=== PATIENT | male | born 1970 | race Caucasian/White ===

== ENCOUNTER 2023-12-01 06:46 | Outpatient (OUT) | payer BC, SELFPAY ==
[2023-12-01 07:10] LABS: Basophils Percent Auto 0.8 % (0.2-2.0); Eosinophils Absolute Auto 0.1 10^3/uL (0.0-0.7); Hematocrit 46.8 % (42.0-54.0); Hemoglobin 15.2 g/dL (14.0-18.0); Immature Granulocytes Abs Auto 0.01 10^3/uL (0.00-0.03); Immature Granulocytes Pct Auto 0.2 % (0.0-0.5); Lymphocytes Absolute Auto 1.4 10^3/uL (1.2-3.8); Lymphocytes Percent Auto 29.4 % (20.5-60.0); Mean Corpuscular HGB Conc 32.5 g/dL (29.9-35.2); Mean Corpuscular Hemoglobin 28.3 pg (25.9-34.0); Mean Platelet Volume 9.4 fL (9.5-13.5); Monocytes Absolute Auto 0.5 10^3/uL (0.3-0.8); Monocytes Percent Auto 10.8 % (1.7-12.0); Neutrophils Absolute Auto 2.6 10^3/uL (1.4-6.5); Neutrophils Percent Auto 55.8 % (43.0-75.0); Platelet Count 274 10^3/uL (150-450); Red Blood Count 5.38 10^6/uL (4.70-6.10); Red Cell Distribution Width 12.8 % (11.0-15.0); White Blood Count 4.7 10^3/uL (4.0-11.0)
[2023-12-01 09:12] LABS: Alanine Aminotransferase 52 U/L (16-63); Albumin Globulin Ratio 1.3; Alkaline Phosphatase 87 U/L (46-116); Anion Gap 12.1; Aspartate Amino Transferase 27 U/L (15-37); BUN Creatinine Ratio 10.6; Bilirubin Total 0.8 mg/dL (0.2-1.0); Calcium 9.9 mg/dL (8.5-10.1); Carbon Dioxide 29.3 mmol/L (21.0-32.0); Chloride 105 mmol/L (98-107); Chol HDL Ratio 3.1; Cholesterol 211 mg/dL (<=200); Estimated GFR (African America >60 (>=60); Estimated GFR (Non-African Ame >60 (>=60); Globulin 3.2 g/dL; Glucose 99 mg/dL (74-106); HDL Cholesterol 68 mg/dL (40-60); Potassium 4.4 mmol/L (3.5-5.1); Sodium 142 mmol/L (136-145); Thyroid Stimulating Hormone 1.813 uIU/mL (0.358-3.740); Total Protein 7.2 g/dL (6.4-8.2); Triglycerides 60 mg/dL (<=150)
[2023-12-01 09:15] LABS: Prostate Specific Antigen Scrn 0.44 ng/mL (<=4.00)
[2023-12-02 04:08] LABS: Testosterone 756 ng/dL (264-916)
== END 2023-12-01 06:47 | disposition home or self-care (01) ==
PROVIDERS: PCP Internal Medicine; Visit Provider Internal Medicine
DX: Z00.00 Encounter for general adult medical examination without abnormal findings (principal)
CPT/HCPCS: 36415; 80053; 80061; 84403; 84443; 85025; G0103

== ENCOUNTER 2025-03-28 08:50 | Outpatient (OUT) | payer BC, SELFPAY ==
--- OUTSIDE RECORDS SUMMARY | 2025-03-28 08:55 | XMS_ITS | CCD ---
Author Organization [facility] Care Team Providers Care Diamond Polisher Name Role Phone ELISA, DR SONG Attending Unavailable ELISA, DR SONG Consulting Unavailable ELISA, DR SONG Primary Care Unavailable ELISA, DR SONG Admitting Unavailable ELISA, DR SONG Consulting Unavailable ELISA, DR SONG Admitting Unavailable ELISA, DR SONG Attending Unavailable ELISA, DR SONG Consulting Unavailable ELISA, DR SONG Primary Care Unavailable ELISA, DR SONG Admitting Unavailable ELISA, DR SONG Attending Unavailable ELISA, SHAHEED Primary Care Physician Raheel CASTAÑEDA Attending Unavailable Rajesh, Gregor Attending Unavailable KEN GIRALDO Attending Unavailable MARLON, Taz Attending Unavailable Rufus, Eligio Malik Attending Unavailable Medications Current Medications Medication Drug Class(es) Dates Sig (Normalized) Sig (Original) acetaminophen 325 mg / oxyCODONE hydrochloride 5 mg oral tablet (2 sources) Opioid Agonist Start: 04-04-2024 End: 04-07-2024 Percocet 5 mg-325 mg oral tablet 1 tab(s), Oral, q6hr as needed for pain for 3 day(s), 15 tab(s), Refill(s) 0, [facility] #[id number], 174, cm, 04/04/24 14:40:00 EDT, Height/Length Dosing, 96.3, kg, 04/04/24 14:40:00 EDT, Weight Dosing Start Date: 04/04/24 Stop Date: 04/07/24 Status: Ordered Start: 01-01-2022 End: 01-04-2022 Percocet 325 mg-5 mg Tab 1 t ab(s), Oral, q6hr as needed for pain for 3 day(s), 15 tab(s), Refill(s) 0, [facility] #[id number], 177.8, cm, 01/01/22 18:15:00 EDT, Height/Length Dosing, 95.3, kg, 01/01/22 18:15:00 EDT, Weight Dosing Start Date: 01/01/22 Stop Date: 01/04/22 Status: Ordered benzonatate 100 mg oral capsule (1 source) Non-narcotic Antitussive Start: 07-24-2023 End: 07-31-2023 take 1 capsule by mouth three times daily Tessalon 100 mg Cap 100 mg = 1 cap(s), Oral, TID, X 7 day(s), # 21 cap(s), Refills(s) 0, Pharmacy: [facility]/pharmacy #[id number], 174, cm, 07/24/23 9:32:00 EST, Height/Length Dosing, 95.7, kg, 07/24/23 9:32:00 EST, Weight Dosing Start Date: 07/24/23 Stop Date: 07/31/23 Status: Ordered lidocaine 0.05 mg/mg medicated patch (4 sources) Antiarrhythmic, Amide Local Anesthetic Start: 05-06-2018 Lidoderm 5% Patch 1 patch(es), Topical, Daily, 7 patch(es), Refill(s) 0, apply 12 hours on and 12 hours off daily Start Date: 05/06/18 Status: Ordered methocarbamol 500 mg oral tablet (4 sources) Muscle Relaxant Start: 05-11-2018 take 1 tablet by mouth twice daily as needed for pain Robaxin 500 mg Tab 500 mg = 1 tab(s), Oral, BID, PRN as needed for pain, # 30 tab(s), Refills(s) 0 Start Date: 05/11/18 Status: Ordered naproxen 500 mg oral tablet (9 sources) Nonsteroidal Anti-inflammatory Drug Start: 05-11-2018 take 1 tablet by mouth twice daily as needed for pain Naprosyn 500 mg Tab 500 mg = 1 tab(s), Oral, BID, PRN for pain, # 20 tab(s), Refills(s) 0, Pharmacy: [facility]/pharmacy #[id number], 177.8, cm, 01/01/22 18:15:00 EDT, Height/Length Dosing, 95.3, kg, 01/01/22 18:15:00 EDT, Weight Dosing Start Date: 01/01/22 Status: Ordered tamsulosin hydrochloride 0.4 mg oral capsule (6 sources) alpha-Adrenergic Johnathon Start: 01-01-2022 End: 01-01-2022 take 1 capsule by mouth once daily Flomax 0.4 mg Cap 0.4 mg = 1 cap(s), Oral, Daily, # 10 cap(s), Refills(s) 0, Pharmacy: [facility] #[id number], 174, cm, 04/04/24 14:40:00 EDT, Height/Length Dosing, 96.3, kg, 04/04/24 14:40:00 EDT, Weight Dosing Start Date: 04/04/24 Status: Ordered Zofran ODT 4 mg Tab-Dis (5 sources) Start: 04-04-2024 take 1 tablet by mouth three times daily Zofran ODT 4 mg Tab-Dis 4 mg = 1 tab(s), Oral, TID, # 15 tab(s), Refills(s) 0, Pharmacy: [facility] #[id number], 174, cm, 04/04/24 14:40:00 EDT, Height/Length Dosing, 96.3, kg, 04/04/24 14:40:00 EDT, Weight Dosing Start Date: 04/04/24 Status: Ordered Start: 01-01-2022 take 1 tablet by tesfaye th three times daily Zofran ODT 4 mg Tab-Dis 4 mg = 1 tab(s), Oral, TID, # 15 tab(s), Refills(s) 0, [id number] 177.8, cm, 01/01/22 18:15:00 EDT, Height/Length Dosing, 95.3, kg, 01/01/22 18:15:00 EDT, Weight Dosing Start Date: 01/01/22 Status: Ordered Problems Active Problems Problem Classification Problem Date Documented Da te Episodic/Chronic Calculus of urinary tract (2 sources) Ureteric stone; Translations: [Calculus of ureter] Onset: 01-01-2022 Episodic Other nutritional; endocrine; and metabolic disorders (2 sources) Obese class I; Translations: [Body mass index (BMI) 30.0-30.9, adult] Onset: 10-06-2022 Chronic Other nutritional; endocrine; and metabolic disorders (1 source) Obesity; Translations: [Obesity, unspecified] 11-29-2023 Chronic Other nutritional; endocrine; and metabolic disorders (1 source) Obesity, unspecified; Translations: [Obesity, unspecified] 11-29-2023 Chronic Other screening for suspected conditions (not mental disorders or infectious disease) (4 sources) Patient encounter status; Translations: [Encounter for screening for malignant neoplasm of prostate] 11-27-2023 Episodic Other upper respiratory infections (1 source) Acute upper respiratory infection; Translations: [Acute upper respiratory infection, unspecified] Onset: 07-24-2023 Episodic Unclassified (3 sources) Patient encounter status 10-06-2022 Past or Other Problems Problem Classification Problem Date Documented Da te Episodic/Chronic Immunizations and screening for infectious disease (4 sources) Contact with and (suspected) exposure to other viral communicable diseases; Translations: [CONTCT EXPS OTH VIRL COMMUNICABL DZ] Onset: 03-10-2021 Episodic Results Test Name Value Interpretation Reference Range Facility [facility] 04-04-2024 Anion gap [Moles/Vol] 15 mmol/L Normal 6-16 [facility] Comment on above: Performed By: #### 2 [id number] #### [facility] [address] [place] [address] Calcium [Mass/Vol] 10.2 mg/dL Normal 8.9-11.1 [facility] Comment on above: Performed By: #### 2 [id number] #### [facility] [address] [place] [address] Chloride [Moles/Vol] 102 mmol/L Normal 101-111 [facility] Comment on above: Performed By: #### 2 [id number] #### [facility] [address] [place] [address] CO2 [Moles/Vol] 25 mmol/L Normal 21-31 [facility] Comment on above: Performed By: #### 2 [id number] #### [facility] [address] [place] [address] Creatinine [Mass/Vol] 1.6 mg/dL High 0.5-1.3 [facility] Comment on above: Performed By: #### 2 [id number] #### [facility] [address] [place] [address] Glucose [Mass/Vol] 117 mg/dL Normal 55-199 [facility] Comment on above: Performed By: #### 2 [id number] #### [facility] [address] [place] [address] Potassium [Moles/Vol] 4.6 mmol/L Normal 3.5-5.3 [facility] Comment on above: Performed By: #### 2 [id number] #### [facility] [address] [place] [address] Sodium [Moles/Vol] 137 mmol/L Normal 135-145 [facility] Comment on above: Performed By: #### 2 [id number] #### [facility] [address] [place] [address] Urea nitrogen [Mass/Vol] 16 mg/dL Normal 5-21 [facility] Comment on above: Performed By: #### 2 [id number] #### [facility] [address] [place] [address] Urea nitrogen/Creatinine [Mass ratio] 10 No Units Normal 10-20 [facility] Comment on above: Performed By: #### 2 [id number] #### [facility] [address] [place] [address] CBC w/ Auto Diffon 4 Basophils/100 WBC (Bld) 0.3 % Normal 0.0-2.0 [facility] Comment on above: Performed By: #### 2 [id number] #### [facility] [address] [place] [address] Basophils/Leukocytes Auto (Bld) [Pure # fraction] 0.0 E9/L Normal 0.0-0.2 [facility] Comment on above: Performed By: #### 2 [id number] #### [facility] [address] [place] [address] Eosinophils (Bld) [#/Vol] 0.0 E9/L Normal 0.0-0.5 [facility] Comment on above: Performed By: #### 2 [id number] #### [facility] [address] [place] [address] Eosinophils/100 WBC (Bld) 0.0 % Normal 0.0-8.0 [facility] Comment on above: Performed By: #### 2 [id number] #### [facility] [address] [place] [address] Erythrocyte distribution width (RBC) [Ratio] 13.5 % Normal 10.9-14.2 [facility] Comment on above: Performed By: #### 2 [id number] #### [facility] [address] [place] [address] Hematocrit (Bld) [Volume fraction] 47.5 % Normal 37.7-49.0 [facility] Comment on above: Performed By: #### 2 [id number] #### [facility] [address] [place] [address] Hemoglobin (Bld) [Mass/Vol] 16.4 g/dL Normal 13.5-17.5 [facility] Comment on above: Performed By: #### 2 [id number] #### [facility] [address] [place] [address] Lymphocytes (Bld) [#/Vol] 0.5 E9/L Low 1.0-4.0 [facility] Comment on above: Performed By: #### 2 [id number] #### [facility] [address] [place] [address] Lymphocytes/100 WBC (Bld) 3.9 % Low 14.0-50.0 [facility] Comment on above: Performed By: #### 2 [id number] #### [facility] [address] [place] [address] MCH (RBC) [Entitic mass] 29.7 pg Normal 27.0-34.0 [facility] Comment on above: Performed By: #### 2 [id number] #### [facility] [address] [place] [address] MCHC (RBC) [Mass/Vol] 34.6 g/dL Normal 31.4-36.0 [facility] Comment on above: Performed By: #### 2 [id number] #### [facility] [address] [place] [address] MCV (RBC) [Entitic vol] 85.7 fL Normal 80.0-100.0 [facility] Comment on above: Performed By: #### 2 [id number] #### [facility] [address] [place] [address] Monocytes (Bld) [#/Vol] 0.6 E9/L Normal 0.2-1.0 [facility] Comment on above: Performed By: #### 2 [id number] #### [facility] [address] [place] [address] Neutrophils (Bld) [#/Vol] 11.1 E9/L High 2.0-7.5 [facility] Comment on above: Performed By: #### 2 [id number] #### [facility] [address] [place] [address] Neutrophils/100 WBC (Bld) 90.5 % High 36.0-75.0 [facility] Comment on above: Performed By: #### 2 006025 #### [facility] [address] [place] [address] Platelet 325.0 E9/L Normal 150.0-500.0 [facility] Comment on above: Performed By: #### 2 [id number] #### [facility] [address] [place] [address] Platelet mean volume (Bld) [Entitic vol] 8.1 fL Normal 6.4-10.8 [facility] Comment on above: Performed By: #### 2 [id number] #### [facility] [address] [place] [address] RBC (Bld) [#/Vol] 5.5 E12/L Normal 4.3-5.9 [facility] Comment on above: Performed By: #### 2 [id number] #### [facility] [address] [place] [address] WBC corrected for nucl RBC Auto (Bld) [#/Vol] 12.3 E9/L High 4.0-11.0 [facility] Comment on above: Performed By: #### 2 [id number] #### [facility] [address] [place] [address] CHEMISTRYOrdered By: SYSTEM SYSTEM on 04-04-2024 Albumin [Mass/Vol] 5.2 g/dL High 3.3 - 5.0 gm/dL [facility] Albumin/Globulin [Mass ratio] 2.1 {ratio} Normal 1.1 - 2.2 [facility] ALP [Catalytic activity/Vol] 75 [iU]/d Normal 21 - 98 Int._Unit/L [facility] ALT No additional P-5'-P [Catalytic activity/Vol] 43 [iU]/d Normal 6 - 46 Int._Unit/L [facility] Anion gap [Moles/Vol] 15 mmol/L Normal 6 - 16 mEq/L R [facility] Chem AST [Catalytic activity/Vol] 32 [iU]/d Normal 5 - 43 Int._Unit/L [facility] Bilirubin [Mass/Vol] 1.0 mg/dL Normal 0.0 - 1 .1 mg/dL [facility] Bilirubin.direct [Mass/Vol] 0.1 mg/dL Normal 0.0 - 0.4 mg/dL [facility] Bilirubin.indirect [Mass or moles/Vol] 0.9 mg/dL Normal 0.1 - 0.9 mg/dL [facility] Calcium [Mass/Vol] 10.2 mg/dL Normal 8.9 - 11. 1 mg/dL [facility] Chloride [Moles/Vol] 102 mmol/L Normal 101 - 1 11 mmol/L [facility] CO2 [Moles/Vol] 25 mmol/L Normal 21 - 31 mmol/L [facility] Creatinine [Mass/Vol] 1.6 mg/dL High 0.5 - 1.3 mg/dL [facility] eGFR 51 mL/min/1.73 m2 Low >=59mL/min /1 .73 m2 [facility] Globulin (S) [Mass/Vol] 2.5 g/dL Normal 1.4 - 4.0 gm/dL [facility] Glucose [Mass/Vol] 117 mg/dL Normal 55 - 199 mg/dL [facility] Lipase [Catalytic activity/Vol] 20 U/L Normal 13 - 58 unit/L [facility] Potassium [Moles/Vol] 4.6 mmol/L Normal 3.5 - 5.3 mmol/L [facility] Protein [Mass/Vol] 7.7 g/dL Normal 6.0 - 7.8 gm/dL [facility] Sodium [Moles/Vol] 137 mmol/L Normal 135 - 145 mmol/L [facility] Urea nitrogen [Mass/Vol] 16 mg/dL Normal 5 - 21 mg/dL [facility] Urea nitrogen/Creatinine [Mass ratio] 10 mg/mg Normal 10 - [address] Abdomen/Pelvis w/o Contra ston 04-04-2024 CT Abdomen/Pelvis w/o Contrast Exam Date/Time: 04/04/2024 16:51 EDT Reason for Exam: Pain Report IMPRESSION: Mild to moderately obstructing 5 mm calculus in the right proximal/mid ureter. Additional small nonobstructing renal calculi. EXAMINATION: CT Abdomen/Pelvis w/o Contrast HISTORY: Right flank pain. Nausea and vomiting. History of kidney stones. TECHNIQUE: Non-IV contrast imaging of the abdomen and pelvis was performed using standard technique, scanning from just above the dome of the diaphragm to the symphysis pubis. Unenhanced imaging is limited for the evaluation of some intra-abdominal and pelvic pathology. Unless otherwise stated, incidental findings in this report do not require further routine follow-up imaging. All CT scans at this facility use dose modulation, iterative reconstruction, and/or weight based dosing when appropriate to reduce radiation dose to as low as reasonably achievable. COMPARISON: CT 01/01/2022. RESULT: Abdomen / Pelvis: Liver: Multiple benign cysts, similar to prior. Biliary: Gallbladder unremarkable. Pancreas: Unremarkable. Spleen: No splenomegaly. Adrenals: No mass. Kidneys and urinary tract: 5 mm calculus right proximal/mid ureter (series 2 image 45, series 3 image 31), located around 7 cm distal to the right renal pelvis. Mild to moderate upstream right hydroureteronephrosis with right perinephric stranding. Multiple additional bilateral renal calculi with the largest in the left lower pole measuring around 3 mm. No left hydronephrosis. No suspicious lesions of the unenhanced kidneys. Report GI Tract: No bowel dilation. Diverticulosis without evidence for diverticulitis. Feces throughout the colon. Lymph Nodes: No lymphadenopathy. Mesentery/peritoneum/ret roperitoneum: Right perinephric stranding. No loculated collection. No pneumoperitoneum. Vasculature: No abdominal aortic or iliac artery aneurysm. Pelvis: No significant free fluid. Bladder decompressed. Prostate calcifications. Small fat-containing left inguinal hernia. Bones/Soft Tissues: No acute osseous findings. Degenerative changes. Lower thorax: Unremarkable. Ordering Provider: Jace Lai FINAL REPORT Dictated: 04/04/2024 5:01 pm Chandan Milan MD Signed (Electronic Signature): 04/04/2024 5:01 pm Signed by: Chandan Milan MD Transcribed by: CHEY Technologist: NAE Technical Comments Rectal Contrast Given? No Oral contrast amount in ml's: 0 Normal [facility] ED Clinical Summaryon 2023 ED Clinical Summary ED Clinical Summary [place] [id number] ED Clinical Summary Person Information Name: DILEEP CERNA Kecia/[facility] Age: 53 Years : 1970 Sex: Male Language: Comoran PCP: SHAHEED CARRENO DO Marital Status: Phone: [phone] Visit Id: Visit Reason: Vomiting; Nausea; Flank pain; pos. kidney stone Speciality: Acuity: 3 Enc Type: Emergency Med Service: Emergency Arrival: 04/04/2024 14:35:00 Discharge: 04/04/2024 18:07:41 LOS: 000 03:32 Checkin: 04/04/2024 14:35:00 Checkout: 04/04/2024 18:07:41 Dispo Type: Home (Routine DC) EVENTS: Event Name Event Status Request Date/Time Start Date/Time Complete Date/Time Arrive Complete 04/04/2024 14:35:00 04/04/2024 14:35:00 04/04/2024 14:35:00 Document Home Meds Request 04/04/2024 14:35:00 Triage Complete 04/04/2024 14:35:00 04/04/2024 14:40:26 04/04/2024 14:40:26 Pending Labs Complete 04/04/2024 14:42:01 04/04/2024 16:59:48 Lab Complete 04/04/2024 14:42:01 04/04/2024 16:07:31 Pending Labs Complete 04/04/2024 15:42:52 04/04/2024 15:42:52 04/04/2024 16:07:31 Lab Complete 04/04/2024 15:42:52 04/04/2024 15:42:52 04/04/2024 16:07:31 Pending Labs Complete 04/04/2024 15:43:43 04/04/2024 15:43:43 04/04/2024 15:43:44 Bed Assign Complete 04/04/2024 16:03:48 04/04/2024 16:03:48 04/04/2024 16:03:48 Dr Exam Complete 04/04/2024 16:03:48 04/04/2024 16:21:33 04/04/2024 16:21:33 RN Exam Complete 04/04/2024 16:03:48 04/04/2024 16:45:33 04/04/2024 16:45:33 Pending Labs Complete 04/04/2024 16:15:08 04/04/2024 16:15:08 04/04/2024 16:15:08 Registration Complete 04/04/2024 16:21:33 04/04/2024 17:02:41 04/04/2024 17:02:41 Meds Admin Complete 04/04/2024 16:28:51 04/04/2024 16:37:35 CT Complete 04/04/2024 16:28:51 04/04/2024 16:37:55 04/04/2024 16:51:07 Dr Exam Complete 04/04/2024 16:33:16 04/04/2024 16:33:16 04/04/2024 16:33:16 Reg Complete Request 04/04/2024 17:02:41 Reg Bed Request Complete 04/04/2024 17:02:41 04/04/2024 17:02:41 04/04/2024 17:02:41 Patient Care Complete 04/04/2024 17:38:12 04/04/2024 18:07:17 Discharge Complete 04/04/2024 17:38:34 04/04/2024 18:07:46 04/04/2024 18:07:46 Transfer Complete 04/04/2024 18:07:46 04/04/2024 18:07:46 04/04/2024 18:07:46 ADDRESS: [address] [place] [phone] PHYS DOC NOTES: MEDICAL INFORMATION: Prescriptions Given: [id number], [address] [place], [place] [id number], [phone] acetaminophen-oxycodone (Percocet 5 mg-325 mg oral tablet) 1 Tablets By Mouth every 6 hours as needed as needed for pain for 3 Days. Refills: 0. Medications to Continue Taking That Have Changed [facility] [employer] [id number] [address] [place], [place] [id number], [phone] START: naproxen (Naprosyn 500 mg Tab) 1 Tablets By Mouth 2 times a day as needed for pain. Refills: 0. START: ondansetron (Zofran ODT 4 mg Tab-Dis) 1 Tablets By Mouth 3 times a day. Refills: 0. START: tamsulosin (Flomax 0.4 mg Cap) 1 Capsules By Mouth every day. Refills: 0. Other Medications START: naproxen (Naprosyn 500 mg Tab) 1 Tablets By Mouth 2 times a day as needed for pain. Refills: 0. START: naproxen (Naprosyn 500 mg Tab) 1 Tablets By Mouth 2 times a day as needed as needed for pain. Refills: 0. START: ondansetron (Zofran ODT 4 mg Tab-Dis) 1 Tablets By Mouth 3 times a day. Refills: 0. START: tamsulosin (Flomax 0.4 mg Cap) 1 Capsules By Mouth every day. Refills: 0. Medications to Continue with No Changes Other Medications lidocaine topical (Lidoderm 5% Patch) 1 Patches Topical every day. apply 12 hours on and 12 hours off daily. Refills: 0. methocarbamol (Robaxin 500 mg Tab) 1 Tablets By Mouth 2 times a day as needed as needed for pain. Refills: 0. PATIENT EDUCATION INFORMATION: Instructions: Kidney Stones Follow up: With: Address: When: Shazia Astudillo, [place] [address], [employer] [address] [phone] Business (1) In 3 days 04/07/2024 DIAGNOSIS: Kidney stone Normal [facility] ED Note-Physicianon 04-04-20 ED Note-Physician ED Note-Physician Basic Information Time Seen: Jace Lai PA-C 04/04/2024 16:21 Chief Complaint patient presents with right flank pain that radiates around into stomach with nausea and vomiting. hx 1 kidney stone. denies fevers or urinary symptoms History of Present Illness 53-year-old male comes into the ED for evaluation of right-sided flank pain. Patient awoke overnight with pain to the right flank area. This radiates to the right side the abdomen. He has a history of kidney stones and this does feel similar. He has had associated nausea and vomiting. No fever or chills. No urinary symptoms. No previous abdominal surgeries other than a hernia repair. No prior treatments. Review of Systems A 10 point review of systems is negative except as noted above. Medical and Surgical History: Reviewed and noted Social history: Lives at home Tobacco: Denies Physical Exam Vitals & Measurements T: 36.9 ?C(Oral) HR: 68(Peripheral) RR: 15 BP: 111/72 SpO2: 98% HT: 174 cm WT: 96.3 kg BMI: 31.81 Nurses notes and vital signs reviewed and patient is not hypoxic. General: The patient appears well, resting comfortably. Skin: Warm, dry. Head: Atraumatic. Neck: No JVD. Eye: Normal conjunctiva. Ears, Nose, Mouth, and Throat: Moist mucous membranes. Cardiovascular: Strong distal pulses. Chest wall: Respiratory: Respirations are nonlabored. Back: Mild right CVA tenderness Musculoskeletal: Normal ROM with no gross deformity. Gastrointestinal: Soft and nontender Urological: Neurological: Awake and alert. No focal deficits. Follows commands. Psychiatric: Cooperative. Medical Decision Making Laboratory studies reviewed and noted. Mild creatinine elevation patient was treated here with a liter of IV fluids. CT of the abdomen shows a 5 mm stone within the right ureter. Patient feels much improved on repeat evaluation here. He will be discharged home pain medications, urine strainer given urology follow-up. Patient was encouraged to return to the ED if symptoms worsen or change. Assessment/Plan Kidney stone (N20.0: Calculus of kidney) Ordered: acetaminophen-oxycodone, 1 tab(s), Oral, q6hr as needed for pain for 3 day(s), 15 tab(s), Refill(s) 0, [facility] #[id number], 174, cm, 04/04/24 14:40:00 EDT, Height/Length Dosing, 96.3, kg, 04/04/24 14:40:00 EDT, Weight Dosing Orders: ketorolac, 30 mg = 1 mL, Injection, IV Push, Once, Stop date 04/04/24 16:28:00 EDT, STAT, Start date 04/04/24 16:28:00 EDT, 04/04/24 16:28:00 EDT morphine, 4 mg = 1 mL, Injection, IV Push, Once, Stop date 04/04/24 16:28:00 EDT, STAT, Start date 04/04/24 16:28:00 EDT, 04/04/24 16:28:00 EDT naproxen, 500 mg = 1 tab(s), Oral, BID, PRN for pain, # 20 tab(s), Refills(s) 0, Pharmacy: [facility] #[id number], 174, cm, 04/04/24 14:40:00 EDT, Height/Length Dosing, 96.3, kg, 04/04/24 14:40:00 EDT, Weight Dosing ondansetron, 4 mg = 2 mL, Injection, IV Push, Once, Stop date 04/04/24 16:28:00 EDT, STAT, Start date 04/04/24 16:28:00 EDT, 04/04/24 16:28:00 EDT ondansetron, 4 mg = 1 tab(s), Oral, TID, # 15 tab(s), Refills(s) 0, Pharmacy: [facility] #[id number], 174, cm, 04/04/24 14:40:00 EDT, Height/Length Dosing, 96.3, kg, 04/04/24 14:40:00 EDT, Weight Dosing tamsulosin, 0.4 mg = 1 cap(s), Oral, Daily, # 10 cap(s), Refills(s) 0, Pharmacy: [facility] #[id number], 174, cm, 04/04/24 14:40:00 EDT, Height/Length Dosing, 96.3, kg, 04/04/24 14:40:00 EDT, Weight Dosing CT Abdomen/Pelvis w/o Contrast Urine Strainer to go Medications Administered Given ketorolac 30 mg/mL Inj 1 mL, 30 mg, IV Push morphine 4 mg/mL Inj, 4 mg, IV Push Zofran 4 mg/2 mL Injection, 4 mg, IV Push Disposition Plan Patient Discharge Condition Disposition: Discharged home Condition: Improved and stable Counseled: Patient and/or family were counseled to workup, results, treatment plan and follow-up recommendations Discharge Prescription List Prescriptions Flomax 0.4 mg Cap, 0.4 mg= 1 cap(s), Oral, Daily Naprosyn 500 mg Tab, 500 mg= 1 tab(s), Oral, BID, PRN Percocet 5 mg-325 mg oral tablet, 1 tab(s), Oral, q6hr, PRN Zofran ODT 4 mg Tab-Dis, 4 mg= 1 tab(s), Oral, TID Follow-up With When Contact Information Shazia Barry In 3 days 04/07/2024 EDT [address], [address] [phone] Business (1) Additional Instructions: Patient Education Kidney Stones Attestation I performed a substantive part of the MDM during the patient?s E/M visit. I personally made or approved the documented management plan and acknowledge its risk of complications. (Independent Interpretation) My (EKG/X-Ray/US/CT) interpretation as above. (Discussion) Management/test interpretation discussed with APC. This report was transcribed using voice recognition software. Every effort was made to ensure accuracy, however, inadvertently computerized mechanical planner mistakes may be present. Appropriate healthcare PPE was used in evaluating this patient. Problem L (more content not included)... Normal [facility] Comment on above: Result Comment: Elec tronically Signed By: Ming ROSENBERG, Jace\.br\Date and Time Signed: 04/04/24 18:01 EDT\.br\Electronically Co-Signed By: Eligio Hooper DO\.br\Date and Time Co-Signed: 04/04/24 18:30 EDT ED Patient Summaryon 024 ED Patient Summary ED Patient Summary [address] [address] Patient Discharge Instructions Person Information Name: DILEEP CERNA Age: 53 Years Arrival Date: 04/04/2024 14:35:00 Discharge Diagnosis: Kidney stone Primary Care Physician: SHAHEED CARRENO DO Provider Information Primary Provider: Eligio Hooper DO Advanced Pr Intern:Jace Lai PA-C The exam and treatment you received in the Emergency Department were for an urgent problem and are not intended as complete care. It is important that you follow up with a doctor, nurse practitioner, or physician?s catering assistant for ongoing care. If your symptoms become worse or you do not improve as expected and you are unable to reach your usual health care provider, you should return to the Emergency Department. We are available 24 hours a day. DILEEP CERNA has been given the following list of patient education materials, prescriptions and follow-up instructions: Follow-up Instructions: With: Address: When: Shazia Luenrique [address] [place] [address], [place] [phone] Business (1) In 3 days 04/07/2024 In the event that this physician does not participate in your insurance network, please consult with your insurance company to find a nearby participating provider. Patient Education Materials: Kidney Stones A MESSAGE TO ALL PATIENTS REGARDING OPIOIDS PRESCRIPTION OPIOIDS: WHAT YOU NEED TO KNOW Prescription opioids can be used to help relieve wikzalnc-is-smzhms pain and are often prescribed following a surgery or injury, or for certain health conditions. These medications can be an important part of the treatment but also come with serious risks. It is important to work with your healthcare provider to make sure you are getting the safest, most effective care. WHAT ARE THE RISKS AND SIDE EFFECTS OF OPIOID USE? Prescription opioids carry serious risks of addiction and overdose, especially with prolonged use. An opioid overdose, often marked by slowed breathing, can cause sudden . The use of prescription opioids can have a number of side effects as well, even when taken as directed: ? Tolerance?meaning you might need to take more of the medication for the same pain relief ? Physical dependence?meaning you have symptoms of withdrawal when a medication is stopped ? Increased sensitivity to pain ? Constipation ? Nausea, vomiting, and dry mouth ? Sleepiness and dizziness ? Confusion ? Depression ? Low levels of testosterone that can result in lower sex drive, energy, and strength ? Itching and sweating RISKS ARE GREATER WITH: ? History of drug misuse, substance use disorder, or overdose ? Mental health conditions (such as depression or anxiety) ? Sleep apnea ? Older age (65 years and older) ? Avoid alcohol while taking prescription opioids. Also, unless specifically advised by your health care provider, medications to avoid include: ? Benzodiazepines (such as Xanax or Valium) ? Muscle relaxants (such as Soma or Flexeril) ? Hypnotics (such as Ambien or Lunesta) ? Other prescription opioids KNOW YOUR OPTIONS Talk to your health care provider about ways to manage your pain that don?t involve prescription opioids. Some of these options may actually work better and have fewer risks and side effects. Options may include: ? Pain relievers such as acetaminophen, ibuprofen, and naproxen ? Some medication that are also used for depression or seizures ? Physical therapy and exercise ? Cognitive behavioral therapy, a psychological, goal-directed approach, in which patients learn how to modify physical, behavioral, and emotional triggers of pain and stress. IF YOU ARE PRESCRIBED OPIOIDS FOR PAIN: ? Never take opioids in greater amounts or more often than prescribed. ? Follow up with your primary health care provider. o Work together to create a plan on how to manage your pain. o Talk about ways to help manage your pain that don?t involve prescription opioids. o Talk about any and all concerns and side effects. ? Help prevent misuse and abuse o Never sell or share prescription opioids. o Never use another person?s prescription opioids. ? Store prescription opioids in a secure place and out of reach of others (this may include visitors, children, friends, and family). ? Safely dispose of unused prescription opioids: Find your community drug take-back program or your pharmacy mail-back program, or flush them down the toilet, following guidance from the Food and Drug Administration (www.fda.gov/Drugs/Resou rcesRosalina). ? Visit www.cdc.gov/drugoverdose to learn about the risks of opioids abuse and overdose. ? If you believe you may be struggling with addiction, tell your health animal care attendant and ask for guidance or call [facility] National Helpline at 5-181-654-Banno. [employer] [facility] (more content not included)... Normal [facility] Extra Blueon 04-04-2024 Tube Collected Plasma Yes Invalid Interpretation Code [facility] Comment on above: Performed By: #### 1 [id number] #### [facility] [address] [place] [address] HEMATOLOGYOrdered By: SYSTEM SYSTEM on 04-04-2024 Basophils/100 WBC (Bld) 0.3 % Normal 0.0 - 2.0 % Remisol Heme Basophils/Leukocytes Auto (Bld) [Pure # fraction] 0.0 E9/L Normal 0.0 - 0.2 E9/L [facility] Heme Eosinophils (Bld) [#/Vol] 0.0 E9/L Normal 0.0 - 0.5 E9/L [facility]e Eosinophils/100 WBC (Bld) 0.0 % Normal 0.0 - 8.0 % [facility] Heme Erythrocyte distribution width (RBC) [Ratio] 13.5 % Normal 10.9 - 14.2 % [facility] Heme Hematocrit (Bld) [Volume fraction] 47.5 % Normal 37.7 - 49.0 % [facility] Hemoglobin (Bld) [Mass/Vol] 16.4 g/dL Normal 13.5 - 17.5 gm/dL [facility] Lymphocytes (Bld) [#/Vol] 0.5 E9/L Low 1.0 - 4.0 E9/L [facility] Lymphocytes/100 WBC (Bld) 3.9 % Low 14.0 - 50.0 % Rem[facility] Heme MCH (RBC) [Entitic mass] 29.7 pg Normal 27.0 - 34.0 pg Remisol Heme MCHC (RBC) [Mass/Vol] 34.6 g/dL Normal 31.4 - 36.0 gm/dL [facility]e MCV (RBC) [Entitic vol] 85.7 fL Normal 80.0 - 100.0 fL [facility] Monocytes (Bld) [#/Vol] 0.6 E9/L Normal 0.2 - 1.0 E9/L [facility] Monocytes/100 WBC (Bld) 5.3 % Normal 4.0 - 14.0 % [facility] Heme Neutrophils (Bld) [#/Vol] 11.1 E9/L High 2.0 - 7.5 E9/L [facility] Neutrophils/100 WBC (Bld) 90.5 % High 36.0 - 75.0 % [facility] Heme Platelet 325.0 E9/L Normal 150.0 - 500.0 E9/L [facility] Platelet mean volume (Bld) [Entitic vol] 8.1 fL Normal 6.4 - 10.8 fL [facility]e RBC (Bld) [#/Vol] 5.5 E12/L Normal 4.3 - 5.9 E12/L [facility] WBC corrected for nucl RBC Auto (Bld) [#/Vol] 12.3 E9/L High 4.0 - 11.0 E9/L [facility] Heme Hep Func Panelon 04-04-2024 Albumin [Mass/Vol] 5.2 g/dL High 3.3-5.0 [facility] Comment on above: Performed By: #### 2 [id number] #### [facility] [address] [place] [address] Albumin/Globulin (S) [Mass conc ratio] 2.1 Normal 1.1-2.2 [facility] Comment on above: Performed By: #### 2 [id number] #### [facility] [address] [place] [address] ALP [Catalytic activity/Vol] 75 Int._Unit/L Normal 21-98 [facility] Comment on above: Performed By: #### 2 [id number] #### [facility] [address] [place] [address] ALT No additional P-5'-P [Catalytic activity/Vol] 43 Int._Unit/L Normal 6-46 [facility] Comment on above: Performed By: #### 2 [id number] #### [facility] [address] [place] [address] AST [Catalytic activity/Vol] 32 Int._Unit/L Normal 5-43 [facility] Comment on above: Performed By: #### 2 [id number] #### [facility] [address] [place] [address] Bilirubin [Mass/Vol] 1.0 mg/dL Normal 0.0-1.1 [facility] Comment on above: Performed By: #### 2 [id number] #### [facility] [address] [place] [address] Bilirubin.direct [Mass/Vol] 0.1 mg/dL Normal 0.0-0.4 [facility] Comment on above: Performed By: #### 2 [id number] #### [facility] [address] [place] [address] Bilirubin.indirect [Mass or moles/Vol] 0.9 mg/dL Normal 0.1-0.9 [facility] Comment on above: Performed By: #### 2 [id number] #### [facility] [address] [place] [address] Globulin (S) [Mass/Vol] 2.5 g/dL Normal 1.4-4.0 [facility] Comment on above: Performed By: #### 2 [id number] #### [facility] [address] [place] [address] Protein [Mass/Vol] 7.7 g/dL Normal 6.0-7.8 [facility] Comment on above: Performed By: #### 2 [id number] #### [facility] [address] [place] [address] Lipase Levelon 04-04-2024 Lipase [Catalytic activity/Vol] 20 U/L Normal 13-58 [facility] Comment on above: Performed By: #### 2 [id number] #### [facility] [address] [place] [address] UA with Cult Rflxon 04-04-20 24 Bacteria Auto Ql (U) Trace Normal Trace Fish [facility] Comment on above: Performed By: #### 4 [id number] #### [facility] [address] [place] [address] Bilirubin Ql (U) Negative Normal Negative [facility] Comment on above: Performed By: #### 4 [id number] #### [facility] [address] [place] [address] Clarity (U) Clear Normal Clear [facility] Comment on above: Performed By: #### 4 [id number] #### [facility] [address] [place] [address] Color (U) Light-Yellow Normal Yellow [facility] Comment on above: Result Comment: Micr oscopic readings are only performed on those samples that meet specific criteria set forth by [facility]. Performed By: #### 4 [id number] #### [facility] [address] [place] [address] Glucose Ql (U) Negative Normal Negative [facility] Comment on above: Performed By: #### 4 [id number] #### [facility] [address] [place] [address] Hemoglobin Auto test strip (U) [Mass/Vol] 1+ mg/dL Abnormal Negative [facility] Comment on above: Performed By: #### 4 [id number] #### [facility] [address] [place] [address] Hyaline casts LM Ql (Urine sed) 0-3 Normal 0-3 [facility] Comment on above: Performed By: #### 4 [id number] #### [facility] [address] [place] [address] Ketones Auto test strip Ql (U) 2+ mg/dL Abnormal Negative [facility] Comment on above: Performed By: #### 4 [id number] #### [facility] [address] [place] [address] Leukocyte esterase Auto test strip Ql (U) Negative Normal Negative [facility] Comment on above: Performed By: #### 4 [id number] #### [facility] [address] [place] [address] Mucus Auto Ql (U) Trace Normal Negative [facility] Comment on above: Performed By: #### 4 [id number] #### [facility] [address] [place] [address] Nitrite Auto test strip Ql (U) Negative Normal Negative [facility] Comment on above: Performed By: #### 4 [id number] #### [facility] [address] [place] [address] pH (U) 5.5 [pH] Invalid Interpretation Code 5.0-9.0 [facility] Comment on above: Performed By: #### 4 [id number] #### [facility] [address] [place] [address] Protein Ql (U) Negative Normal Negative [facility] Comment on above: Performed By: #### 4 [id number] #### [facility] [address] [place] [address] RBC Ql (U) 0-3 Normal 0-3 [facility] Comment on above: Performed By: #### 4 [id number] #### [facility] [address] [place] [address] Specific gravity (U) [Rel density] 1.026 Invalid Interpretation Code 1.005-1.030 [facility] Comment on above: Performed By: #### 4 [id number] #### [facility] [address] [place] [address] Urobilinogen (U) [Mass/Vol] Negative Normal Negative [facility] Comment on above: Performed By: #### 4 [id number] #### [facility] [address] [place] [address] WBC Auto (Urine sed) [#/Area] 0-5 Normal 0-5 [facility] Comment on above: Performed By: #### 4 [id number] #### [facility] [address] [place] [address] Type of Urine collection method Clean Catch Normal [facility] Comment on above: Performed By: #### 4 [id number] #### [facility] [address] [facility] [place] [place] [address] URINALYSISOrdered By: SYSTEM SYSTEM on 04-04-2024 Bacteria Auto Ql (U) Trace /HPF Normal Trace/HPF [facility] UA Auto SS Bilirubin Ql (U) Negative Normal Negativemg/ d L [facility] UA Auto SS Clarity (U) Clear (04/04/24 4:39 PM) Normal Clear [facility] UA Auto SS Color (U) Light-Yellow 1 (04/04/24 4:39 PM) Normal Yellow [facility] UA Auto SS Comment on above: Interpretive Data: M icroscopic readings are only performed on those samples that meet specific criteria set forth by [facility]. Glucose Ql (U) Negative Normal Negativemg/d L [facility] UA Auto SS Hemoglobin Auto test strip (U) [Mass/Vol] 1+ mg/dL Invalid Interpretation Code Negativemg/d L [facility] UA Auto SS Hyaline casts LM Ql (Urine sed) 0-3 graded/LPF Normal 0-3graded/LP F [facility] UA Auto SS Ketones Auto test strip Ql (U) 2+ mg/dL Invalid Interpretation Code Negativemg/d L [facility] UA Auto SS Leukocyte esterase Auto test strip Ql (U) Negative Normal NegativeLeu/ uL [facility] UA Auto SS Mucus Auto Ql (U) Trace graded/LPF Normal Negati vegrad ed/LPF [facility] UA Auto SS Nitrite Auto test strip Ql (U) Negative Normal Negativemg/d L [facility] UA Auto SS pH (U) 5.5 *NA* (04/04/24 4:39 PM) Invalid Interpretation Code 5.0 - 9.0 [facility] UA Auto SS Protein Ql (U) Negative Normal Negativemg/d L [facility] UA Auto SS RBC Ql (U) 0-3 graded/HPF Normal 0-3graded/HP F [facility] UA Auto SS Specific gravity (U) [Rel density] 1.026 *NA* (04/04/24 4:39 PM) Invalid Interpretation Code 1.005 - 1.030 [facility] UA Auto SS Urobilinogen (U) [Mass/Vol] Negative Normal Negativemg/d L [facility] UA Auto SS WBC Auto (Urine sed) [#/Area] 0-5 graded/HPF Normal 0-5graded/HP F [facility] UA Auto SS URINALYSISOrdered By: Gladys Noguera on 04-04-2024 UA Spec Desc Clean Catch (04/04/24 4:39 PM) Normal [facility] UA Auto SS eGFRon 04-04-2024 eGFR 51 mL/min/1.73 m2 Low >=59 [facility] Comment on above: Performed By: #### 1 [id number] #### [facility] [address] [place] [address] Ambulatory Visit Summaryon 0 10-06-2022 Ambulatory Visit Summary ERYNDILEEP Maxwell :1970 Visit Date:10/06/2022 Ambulatory Visit Instructions Your Diagnosis BMI 30.0-30.9,adult Your Care Team Attending Physician - KEN GIRALDO CNP Primary Care Physician - SHAHEED CARRENO DO This Is Your Medications List lidocaine topical (Lidoderm 5% Patch) methocarbamol (Robaxin 500 mg Tab) naproxen (Naprosyn 500 mg Tab) naproxen (Naprosyn 500 mg Tab) ondansetron (Zofran ODT 4 mg Tab-Dis) tamsulosin (Flomax 0.4 mg Cap) Procedures Performed Robotic-assisted umbilical herniorrhaphy with 12 cm. Symbotex mesh insertion (03/21/2016), bilateral myringotomy, umbilical hernia. Discharge Vitals Temperature (Temporal Artery) 36.7 ?C Heart Rate (Peripheral) 70 Blood Pressure 132/84 Height 179 cm Height 70 in Weight 96.8 kg Weight 212.96 lb BMI 30.21 Medications What How Much When Why Instructions Unchanged lidocaine topical (Lidoderm 5% Patch) 1 Patches Topical Every day Low back pain L-S radiculopathy apply 12 hours on and 12 hours off daily Unchanged methocarbamol (Robaxin 500 mg Tab) 1 Tablets By Mouth 2 times a day as needed for as needed for pain Unchanged naproxen (Naprosyn 500 mg Tab) 1 Tablets By Mouth 2 times a day as needed for for pain Unchanged naproxen (Naprosyn 500 mg Tab) 1 Tablets By Mouth 2 times a day as needed for as needed for pain Unchanged ondansetron (Zofran ODT 4 mg Tab-Dis) 1 Tablets By Mouth 3 times a day Unchanged tamsulosin (Flomax 0.4 mg Cap) 1 Capsules By Mouth Every day Allergies No Known Allergies Normal [facility] Family Medicine Office/Clini c Noteon 10-06-2022 Family Medicine Office/Clinic Note Chief Complaint [facility] care HPI Staff Dileep is a 51 year old male who presents to [facility] care. Have been seen by any other providers ? ER, Urgent Care, or Specialty offices? last PCP- Dr. Carreno last seen- 1 yr ago. Date, Why, where, Reason? n/a Tests performed, X-rays or labs? n/a Diagnosis(es)? n/a Medication prescribed? n/a Colonoscopy- never Labs- due He has no concerns at the time of visit. History of Present Illness Establish Care: History: Any previous diagnosis: Denies any chronic past medical history History of seeing any specialist: General Surgery for hernia surgery many years ago When was your last doctors visit: approximately 1 year ago Last provider: Dr. Shaheed Carreno Any recent labs: Denies any recent laboratory work Health Maintenance UTD: Colonoscopy: Did do Cologuard approximately 2 years ago with negative results PSA: Denies, Denies any family hx of prostate CA Smoker: Never LDCT: NA Acute: Current issues/complaints: Patient states he is getting out for some upper respiratory symptoms including runny stuffy nose, watery itchy eyes and a dry cough with chest congestion. Symptoms have been improving over the last few days. Denies any fever/chills, shortness of breath/troubles, chest pain/discomfort, any nausea/vomiting/diarrhea . Patient states he does get seasonal allergy-like symptoms once or twice per year and was usually treated once per year with Z-Medhat by his PCP. He denies any other symptoms or concerns in office today I have reviewed and verified the staff HPI to be accurate for this encounter. Review of Systems PHQ Score Initial Depression Screen Score: 0 ROS - Provider Constitutional: fever no, chills no, sweats no, weakness no Skin: rash no, lesions no, petechiae no Eye: eye pain no, discharge yes, clear , light sensitivity no, eye irritation no, double vision no, blurring no, vision loss no ENMT: ear pain no, ear drainage no, sore throat no, nasal congestion no , nasal drainage yes, clear hoarseness no Respiratory: chest discomfort no, shortness of breath no, cough yes, dry , orthopnea no, wheezing no Cardiovascular: chest pain no, palpitations no, edema no Gastrointestinal: nausea no, vomiting no, diarrhea no, GI bleeding no Genitourinary: dysuria no, hematuria no, discharge no, urinary frequency no, urinary urgency no Musculoskeletal: Musculoskeletal skeletal pain no Neurologic: headache no, dizziness no, numbness/tingling no, weakness no Physical Exam Vitals & Measurements T: 36.7 ?C(Temporal Artery) HR: 70(Peripheral) BP: 132/84 SpO2: 96% HT: 70 in HT: 179 cm WT: 96.8 kg WT: 212.96 lb BMI: 30.21 General: Well developed, well nourished, in no acute distress Eyes: Pupils equal, round, and reactive to light. Conjunctivae and sclerae normal, and extraocular movements intact Ears: No deformity or lesion of external ear. Canals and TM appear normal bilaterally. TM?s intact, not inflamed, with normal light reflex. Hearing grossly normal to conversational speech Nose: No deformity, discharge, inflammation, or lesions Mouth: Mucous membranes moist. Normal oropharynx, and posterior pharynx without lesions or exudates. Tongue normal Neck: Neck supple. No masses or palpable cervical nodes. Trachea midline. Lungs: Normal respiratory effort and clear to auscultation Cardio: Regular rate and rhythm, normal S1 and S2, no murmur, no rub Extremity: No clubbing, cyanosis, edema, or deformity, with normal ROM in both upper and lower bilateral extremities Neurologic: Grossly normal Skin: No rashes, ulcerations, or suspicious lesions to visible skin Mental Status: Alert and oriented x3. Normal mood and affect Assessment/Plan 1. Well adult exam (Z00.00: Encounter for general adult medical examination without abnormal findings) Normal physical/wellness exam today in office. Will order laboratory work for preventative purposes. Continue to follow-up yearly/as needed Ordered: Basic Metabolic Panel CBC w/ Auto Diff Lipid Panel PSA Screen, Total 2. BMI 30.0-30.9,adult (Z68.30: Body mass index [BMI] 30.0-30.9, adult) Education attached on health risks of obesity and discusses healthy, balanced diet low in sugar, fat, carbs and exercise regimen Ordered: Body Mass Index (BMI) documented 3008F Follow-up With When Contact Information KEN GIRALDO CNP Within 1 year [address] [facility] [address] [place] [address] Additional Instructions: Patient Education Health Maintenance, Male Problem List/Past Medical History Ongoing Well adult exam Historical No qualifying data Procedure/Surgical History Robotic-assisted umbilical herniorrhaphy with 12 cm. Symbotex mesh insertion (03/21/2016), bilateral myringotomy, umbilical hernia. Medications Flomax 0.4 mg Cap, 0.4 mg= 1 cap(s), Oral, Daily, Not taking Lidoderm 5% Patch, 1 patch(es), Topical, Daily, Not taking Naprosyn 500 mg Tab, 500 mg= 1 tab(s), Oral, BID, PRN, Not taking Naprosyn 500 mg Tab, 500 (more content not included)... Normal [facility] Comment on above: Result Comment: Elec tronically Signed By: ENZO SALDIVAR, KEN Chen\.br\Date and Time Signed: 10/06/22 15:40 EDT Patient Educationon 10-07-19 23 Patient Education Urology Health Maintenance, Male Adopting a healthy lifestyle and getting preventive care are important in promoting health and wellness. Ask your health care provider about: ? The right schedule for you to have regular tests and exams. ? Things you can do on your own to prevent diseases and keep yourself healthy. What should I know about diet, weight, and exercise? Eat a healthy diet ? Eat a diet that includes plenty of vegetables, fruits, low-fat dairy products, and lean protein. ? Do not eat a lot of foods that are high in solid fats, added sugars, or sodium. Maintain a healthy weight Body mass index (BMI) is a measurement that can be used to identify possible weight problems. It estimates body fat based on height and weight. Your health care provider can help determine your BMI and help you achieve or maintain a healthy weight. Get regular exercise Get regular exercise. This is one of the most important things you can do for your health. Most adults should: ? Exercise for at least 150 minutes each week. The exercise should increase your heart rate and make you sweat (moderate-intensity exercise). ? Do strengthening exercises at least twice a week. This is in addition to the moderate-intensity exercise. ? Spend less time sitting. Even light physical activity can be beneficial. Watch cholesterol and blood lipids Have your blood tested for lipids and cholesterol at 20 years of age, then have this test every 5 years. You may need to have your cholesterol levels checked more often if: ? Your lipid or cholesterol levels are high. ? You are older than 40 years of age. ? You are at high risk for heart disease. What should I know about cancer screening? Many types of cancers can be detected early and may often be prevented. Depending on your health history and family history, you may need to have cancer screening at various ages. This may include screening for: ? Colorectal cancer. ? Prostate cancer. ? Skin cancer. ? Lung cancer. What should I know about heart disease, diabetes, and high blood pressure? Blood pressure and heart disease ? High blood pressure causes heart disease and increases the risk of stroke. This is more likely to develop in people who have high blood pressure readings, are of descent, or are overweight. ? Talk with your health care provider about your target blood pressure readings. ? Have your blood pressure checked: ? Every 3?5 years if you are 18?39 years of age. ? Every year if you are 40 years old or older. ? If you are between the ages of 65 and 75 and are a current or former smoker, ask your health care provider if you should have a one-time screening for abdominal aortic aneurysm (AAA). Diabetes Have regular diabetes screenings. This checks your fasting blood sugar level. Have the screening done: ? Once every three years after age 45 if you are at a normal weight and have a low risk for diabetes. ? More often and at a younger age if you are overweight or have a high risk for diabetes. What should I know about preventing infection? Hepatitis B If you have a higher risk for hepatitis B, you should be screened for this virus. Talk with your health care provider to find out if you are at risk for hepatitis B infection. Hepatitis C Blood testing is recommended for: ? Everyone born from 1945 through 1965. ? Anyone with known risk factors for hepatitis C. Sexually transmitted infections (STIs) ? You should be screened each year for STIs, including gonorrhea and chlamydia, if: ? You are sexually active and are younger than 24 years of age. ? You are older than 24 years of age and your health care provider tells you that you are at risk for this type of infection. ? Your sexual activity has changed since you were last screened, and you are at increased risk for chlamydia or gonorrhea. Ask your health care provider if you are at risk. ? Ask your health care provider about whether you are at high risk for HIV. Your health care provider may recommend a prescription medicine to help prevent HIV infection. If you choose to take medicine to prevent HIV, you should first get tested for HIV. You should then be tested every 3 months for as long as you are taking the medicine. Follow these instructions at home: Lifestyle ? Do not use any products that contain nicotine or tobacco, such as cigarettes, e-cigarettes, and chewing tobacco. If you need help quitting, ask your health care provider. ? Do not use street drugs. ? Do not share needles. ? Ask your health care provider for help if you need support or information about quitting drugs. Alcohol use ? Do not drink alcohol if your health care provider tells you not to drink. ? If you drink alcohol: ? Limit how much you have to 0?2 drinks a day. ? Be aware of how much alcohol is in your drink. In the [place] one drink equals one 12 oz bottle of beer (355 mL), one 5 oz glass of wine (148 m (more content not included)... [facility] Registrationon 08-03-2022 Registration [id number]: 127 [facility] Consenton 07-08-2022 Consent [id number] :127 [facility] In office Testingon 07-08-20 22 In office Testing [id number] :127 [facility] Coding Summary.on 01-03-2022 Coding Summary. CD:[id number] Gh0b Ww+PGhlYWQ+XM9REMXuG64uv UFarK7JD6yAWT0QGYTYUIKXO S3DRE2bsDR3FJqdV3WpoxGb KcuthLNbIV38LYn4JOV6hZwi CKyvtZ3fsHPwO9j0GkKfQC93 mU85RDdfGKUcOiS3VgLkazxo bWFy V6iiSgKlvOZfTna+PHRhYmxl IHdpZHRoPScxMDAlJyBzdHls VO5fGv8lONTqVTWzbAqutZTv OiBj b7llAHVsFDzeRI1uaMbuK9Bv vHH7CDTop3v2Xf92kCB+PHRk CXR3zAzaDXihg338PlOni3oq IDM3 nWUeNOonXGY3A75jw7M3GSRu PPNjHPX3nJV9sD8hnMjazcqh W4IuoPDsNyB0VVO1oCKdyS1f bGln facjxH1qFeh+B07OIP3DGYXW SD0DTlv9U5YyGbevyDF+PC90 VGBdDX01jGZdaDQub1scbYq0 JzEw KNXtWQF5mTvcQHpcc3EwTABr J02wbONey1F8TXRtvAnouHEr PtNvbGH4wI2eUQrrjuzda6xk dzsn Jlcav5ruyg63yY25U37sHXse RDCjRRH3DKOpMNGxdXuzfl7o vD6hIa7+LOgdr2ovn5ohsHz9 IjIw YBWnkiZdyEajJIW3c7UcYh27 S7DqqRzdi3UkEng1yk71sDNt v3O3bIO4CHjoHOZkvR7gITbk ZnQ6 EIMvRsXnnA03rXDgJVjwXn1g yZynaIyaXK6eKTOgdwejZRId rS8oIFVjwQJbhKbhAS5xDCDn bjtm o165MnViTMC8KGUepGTaR9Zb yZ9oAyWvLCEoAIPcA9FagWVr LXzhE116EEhoClV1BTYsxoDh Y2Fs PUPlpAeqStS3i3V5Jt1Cs0Ja abslUTG2OLclTXM3WfA6ZlHf YeG2F7MuDcf3ZDZfpGywCG4e J3Bh CAYxepsccufuvUD7TWAtJJYj eA84wJKaBMekJl3gk6E3n788 BHIbEJSgzI94Rw7fyIkdPGLr dCBU rW5pfnmks3emvoqpYhWhYMVe DPx1LUw5KFYxjWtnQeDhUHW5 AtI9IBN6dYRiqW2njTnitbai dG9w Oyc+V23btT9lCFI8FFG3uwbx LTLureBsMO39WM55M0AnDofj dGFibGU+TUSqxcNpiAbwKR3x YmFj h6bav6QkIFtkS1QzKCLyDAbf Tkj7UBDwFHQ6tCW3sD9gLORj FTscc1K2qIZ6C2BxrtAhrl8f b2xs UBQhFEnuL88olMSir0V6VMXd aKU2TENilFsjZgYltE20Bia+ HDYgfSegj3UcKcpjz4ymx4hi dGg9 OqTyDCTcdtOhrGehWVE5l8Hp Lp51L67aUOzpUSRcOREqSFNp VRRehRhwkw4izT7lYg5+PGNv bCB3 dDW6iM0bIEBfZhE3SKkkY642 DoKdwVZhNeyiq6vtr5njiBc5 TsFaZIJdffEswBjpYUK6k2Zx Lz48 X70aNWvaRBNfRGEeAPNnMIUs lCwpyv1nsO7nCc8+BZ4jh3ck me86wZ62sQF+OWMtCRI9hKdj PSdw CLAavY1mSRrzXeW9NRWqXuFm oJ15oMRkYZynIs6uzIeypCkm FJ5sPEReznmrn217RwXug3wo IDEw rEJqAOpaEZI5B07lv8K7LYUn TWEsWKL7zVM0xI1yoKfpjuau bGVmdDsgdmVydGljYWwtYWxp Z246 IHRvcDsnPlBhdGllbnQgTmFt PVo1Q5AkGew2ONSxuYxnYO2d sYNcWSfzXj3khRjzcNqrKU1t NTBp ivgeh522DfPum8zmYDDipBJk TBykWJW0W65wo5R4YPMgWKGs KID3gFN5nL3foGffzsbwoQFf dDsg qkRfcFniJKukPQxmK436OKEk bCiiJyAvqoTkWADokJH4QK66 TC57tKQqa6S8mQX3B3FcNYFe bmct tpfglPG4ARTsQIZgrW11Fw3l xCpdOm4xIJZqBRN0FDIjvCAs G0PlqH1bEiLfFCOlTBGmI9Ii eHQt ROfvA542EOnqStT5TYTmixCh Q3WzBNYsnTzyPxX6h8Z9Sf5P L5W9ES92IA02gGExk5I9lUU5 J3Bh UKIwcdjlbecnwEQ7YSGeQNCp vO76Fs7vuFsiCw3lIHSaDCR7 ZDLxoYHuU3DkpV7wNhDrESEp MDAw L5FnaUCyETvcR424EUbbKbK8 ROAcdgKrE9UwGKIxnFadMgF9 p0I1Zf2CUOp9QN00AF12kBOi c3R5 pDH2T4GiDCUndgelqekycXL8 HRMpURGpyF09Nk0loEzwXy9p ZFAjJNW4HHAszOSwH0LcmZ3g OiAj KILlQUXvR1YqdVEiMVlkH876 KIzqSsQ4LNRcczUmP0KaADYy sMxbKaU9r0J6Cd4EBCZiOR82 IFR5 rXV4ZA16QW95S5KyJyokkFVd bGU+PHRhYmxlIHdpZHRoPScx KDMtFyUrnLicOD8iHq3zTYOt LWNv eHgowCCaOfYpa2tmXJMaOHaf UI9koJucU7EcwLK4TFEmb4e1 Cb13M87zM5UxnCA+PGNvbCB3 aWR0 gX0eGiJnRbY8GXsuY241GeSy aKHhEkwjz2nkv8xicJv1JsD9 VPPejyBrjYvaCOP8i5EfYo00 Y29s IHdpZHRoPSIxNSUiIHZhbGln qd0hpU7hZm9+LQWpyDK9yJD5 vG7iQuEcWrQ0IDbrX200DzAh cCIv Oesgp1hou9jsdWr3UsRtZFPz syDnmBcoSPF1w5VaRf20O0Xu oQqwa2FaIbl4cp14kKWhg7U6 bGU9 T4RnGAGsheahvQWwnNmrRG1g NZZpmqfmSIZjkO8wROSrR5k0 UoBlWqL4IPsuN6UyqrF8OHEa cHQg THyrVDO7B06kb3D6XHGwTEQh XMY5pEQ8zI0jqYhqcqpllXCc kCmdtlIwwQqtAHebIYjhN447 IHRv sSofTWEknP7yWYCghUZivDyc UL0sPQAhwnrtGjVEEV4NTQZV Le1UEPV2J9QhKjw5FUWaoAgc ZT0n kHTgYIjrOd9qeLbvnPxdZI0z UCVlhspkDJCihD8sSVPysWUm qKcsDM5fGJUqhtlkq086IeDh MHB0 JVUuyTHcM1RdpC4lJfDxHDEh VYOtW6FjePHoWRwuR776FQnr HvQ3IRGnnyNyZ8ElUUKcbAvv OiB0 u9R9Rn0bOU6dOX0cJHxcJO78 WR58nTFrf7R1nGJ1F1ZmHCYy avlumlnzuMC1NASfKTEaoW36 cGFk FNhgPk9fz6V4m011AJEdPESa fB38Hb9ftPcbEXMrkAYUwW9o marcd8egrmkuCrFqZPLfMJd9 ZXh0 VUUhwUgrRoLeNNV5FaD5KZC9 pPEhnX6heTaweuimxU7cEyv+ AIXsULFumsQ7M3SfBao6UKXj dHls LS7ghIRvUJzqMf8ffWelwPwt GM1gYAJooolxDHCbnX1uSHNb aTTjcYuyCO1aWXDbonthy028 OiAx IPH1NOYnxUPzV4NofI0sVpVq MUJcBHNkH7ZyfMKzGFiuK687 FSmuRsV2KRVslqMkN7CqDLXe aWdu YpF1u6A8Ss0BXOvwIX75GB08 iIQkb5M1sIP1W6VdIATyiztr jkxmqQP7WZDrDLHqkP61zGBu ZGlu Cj8ik3C3p963VAPwCINisE79 Ec1knGxmWVUveEHBfH0lqyuc e6vhlfgfCyEnHEEmXUu3YLu6 LWFs vCfpZcBvFPK6OcR9ZIX3oYTk cJ3wnYlrwusfeD9lYps+RW1l wssfttY8MA42JM69J0PsTvjg dGFi bGU+PHRhYmxlIHdpZHRoPScx NHEfXxNisMdyBC7cNt1vGCWv CDYtoRzskLMwLvCoy1osYTMm ZTsg TK3aaAduR9RloMK0TVWao8t0 Iy33K49wN1UguJQ+PGNvbCB3 cFT6uI6pZjXyUmW1XHjzX076 InRv xBMpLtvnh4ths4yemZi7MfJk RHVutnEgbAqwJBN7k4JxGy97 Q51jQFbiOVTkGICtDJEtUZLf bGln ym8jdI3sHn9+NQMluGB0qIM9 kT3wJjVoCjU6LJhdE670BuVj vXKkZzjmG63aI8AasZV+PHRy Pjx0 SOSwpVksLH0keQJrAXpyIn0w IWI3VlObZiKlNPmvF9LsYKTo ifelcxvvdLK4QWRtLNWyjG60 Zm9u gKdeIv3bCBQvFRT3RYVhyBHd C8ChhO2gEoSoVVHxIDPjI3Mk rRUrLEhvO210MBphXcV1GENx cnRp F4JlGLJzkNiyJeS1h2T3Qn0P rObtgIXpNV0jPkHdJYf4S2Wa Snw3WHYnnQvkYX3joUOwXNos Zy1y qMjkoAyqBJ3bIFWfggxjx560 IjGht6jxKOEwlQJeHQltMDO8 W06nj8Z3JLPoCGSgFDG2tLI8 dC1h bGlnbjogbGVmdDsgdmVydGlj GHniXGbbV596KGPhkVgyAyLT Fzv3K9LnPfj0FMEjeHciWM3h cGFk ASvmMs5igBxttXyrWV8mGSUx jiluk038BjJfb1ctOUJwnQIh JFjsQII4X44ma6L1TKRrIQWn MDA7 iAA3kP6ivSijchkkdDHecXjq zbXatQhpRZisYGfjV933GVAs eJioDi0BXvu5K6AdMkb7MSGv dHls YZ3lsPBvJPbrTe7zaBsciNvw MO3lGHAaxwwkj094RuFdh1qj OKZxiYYrWSqqIWF5Q50gg6G5 ICMw BMWeBPN6iKE7kK2hsHjyybff bGVmdDsgdmVydGljYWwtYWxp B660ZTYguOftUpHpeCQsQydm dGQ+ OJ91ri34R2JyNborFjy9TJUm RRS1hHO2aN0kRZBcJCmjp2O2 dET3Z8YuksAzpj9lq5tkUQOz ZTog Y29s (more content not included)... [facility] ED Note-Physicianon 01-04-20 ED Note-Physician Basic Information Time Seen: Jace Lai PA-C 01/01/2022 18:13 Chief Complaint c/o RLQ pain and right flank pain that started one hour ago. Denies NVD. History of Present Illness 52-year-old male comes to the ED for evaluation of right-sided flank pain. Sudden onset of right flank and right lower quadrant abdominal pain just prior to arrival. Associated nausea but no vomiting. No history of similar symptoms in the past. No trauma. No prior treatments. Review of Systems A 10 point review of systems is negative except as noted above. Medical and Surgical History: Reviewed and noted Social history: Lives at home Tobacco: Denies Physical Exam Vitals & Measurements T: 36.5 ?C(Oral) HR: 67(Peripheral) RR: 20 SpO2: 100% HT: 177.8 cm HT: 177.8 cm WT: 95.3 kg WT: 95.3 kg BMI: 30.15 Nurses notes and vital signs reviewed and patient is not hypoxic. General: Patient appears uncomfortable Skin: Warm, dry. Head: Atraumatic. Neck: No JVD. Eye: Normal conjunctiva. Ears, Nose, Mouth, and Throat: Moist mucous membranes. Cardiovascular: Strong distal pulses. Chest wall: Respiratory: Respirations are nonlabored. Back: Right CVA tenderness Musculoskeletal: Normal ROM with no gross deformity. Gastrointestinal: Right mid abdominal tenderness. No guarding, rebound rigidity. No distention Urological: Neurological: Awake and alert. No focal deficits. Follows commands. Psychiatric: Cooperative. Medical Decision Making Urinalysis shows no evidence of infection. His CT scan shows a 3 mm stone. This is discussed with him. With serial examination she is feeling much improved after IV pain medications. He will be discharged home with pain medication, Flomax, Zofran. He is given urine strainer and urology follow-up. Patient was encouraged to return to the ED if symptoms worsen or change. Assessment/Plan Ureterolithiasis (N20.1: Calculus of ureter) Ordered: acetaminophen-oxycodone, 1 tab(s), Oral, q6hr as needed for pain for 3 day(s), 15 tab(s), Refill(s) 0, [facility]/pharmacy #[id number], 177.8, cm, 01/01/22 18:15:00 EDT, Height/Length Dosing, 95.3, kg, 01/01/22 18:15:00 EDT, Weight Dosing Orders: HYDROmorphone, 1 mg = 1 mL, Injection, IV Push, Once, Stop date 01/01/22 19:11:00 EDT, STAT, Start date 01/01/22 19:11:00 EDT, 01/01/22 19:11:00 EDT ketorolac, 30 mg = 1 mL, Injection, IV Push, Once, Stop date 01/01/22 18:15:00 EDT, STAT, Start date 01/01/22 18:15:00 EDT, 01/01/22 18:15:00 EDT morphine, 4 mg = 2 mL, Injection, IV Push, Once, Stop date 01/01/22 18:14:00 EDT, STAT, Start date 01/01/22 18:14:00 EDT, 01/01/22 18:14:00 EDT naproxen, 500 mg = 1 tab(s), Oral, BID, PRN for pain, # 20 tab(s), Refills(s) 0, Pharmacy: [facility]/pharmacy #[id number], 177.8, cm, 01/01/22 18:15:00 EDT, Height/Length Dosing, 95.3, kg, 01/01/22 18:15:00 EDT, Weight Dosing ondansetron, 4 mg = 2 mL, Injection, IV Push, Once, Stop date 01/01/22 18:15:00 EDT, STAT, Start date 01/01/22 18:15:00 EDT, 01/01/22 18:15:00 EDT ondansetron, 4 mg = 1 tab(s), Oral, TID, # 15 tab(s), Refills(s) 0, Pharmacy: [facility]/pharmacy #[id number], 177.8, cm, 01/01/22 18:15:00 EDT, Height/Length Dosing, 95.3, kg, 01/01/22 18:15:00 EDT, Weight Dosing Sodium Chloride 0.9% intravenous solution 1,000 mL, 1,000 mL, IV, Bolus, STAT, Start date 01/01/22 18:19:00 EDT, Total volume (mL): 1,000, 95.3 kg, 2.17, m2 tamsulosin, 0.4 mg = 1 cap(s), Oral, Daily, # 10 cap(s), Refills(s) 0, Pharmacy: [facility]/pharmacy #[id number], 177.8, cm, 01/01/22 18:15:00 EDT, Height/Length Dosing, 95.3, kg, 01/01/22 18:15:00 EDT, Weight Dosing CT Abdomen/Pelvis w/o Contrast UA With Cult Reflex Urine Strainer to go Disposition Plan Patient Discharge Condition Disposition: Discharged home Condition: Improved and stable Counseled: Patient and/or family were counseled to workup, results, treatment plan and follow-up recommendations Discharge Prescription List Prescriptions Flomax 0.4 mg Cap, 0.4 mg= 1 cap(s), Oral, Daily Naprosyn 500 mg Tab, 500 mg= 1 tab(s), Oral, BID, PRN Percocet 325 mg-5 mg Tab, 1 tab(s), Oral, q6hr, PRN Zofran ODT 4 mg Tab-Dis, 4 mg= 1 tab(s), Oral, TID Follow-up With When Contact Information Erasmo TOBIN In 3 days 01/04/[address] [place], [place] [id number] [facility] (1) Additional Instructions: Patient Education Kidney Stones Attestation Patient seen and evaluated by the physician catering assistant. Attending physician was present in the emergency department and supervised care. This visit was performed by both the physician and an APC. I performed all aspects of the MDM as documented. This report was transcribed using voice recognition software. Every effort was made to ensure accuracy, however, inadvertently computerized mechanical planner mistakes may be present. Appropriate healthcare PPE was used in evaluating this patient. The patient was placed in a mask. The healthcare provider was wearing mask, gloves, and utilizing proper hand hygiene. All equipment was (more content not included)... [facility] Comment on above: Result Comment: Elec tronically Signed By: Jace Lai PA-C\.br\Date and Time Signed: 01/01/22 20:05 EDT\.br\Electronically Co-Signed By: Gregor Mena DO\.br\Date and Time Co-Signed: 01/03/22 07:[address] Abdomen/Pelvis w/o Contra benny 01-02-2022 CT Abdomen/Pelvis w/o Contrast Exam Date/Time: 01/01/2022 18:59 EDT Reason for Exam: Pain Report IMPRESSION: THERE IS A 3 MM RENAL STONE AT THE RIGHT URETEROVESICAL JUNCTION WITH MILD RIGHT HYDRONEPHROSIS AND HYDROURETER. THERE IS NO HYDRONEPHROSIS ON THE LEFT. THERE ARE NUMEROUS BILATERAL INTRARENAL STONES MEASURING LESS THAN 5 MM. CLINICAL HISTORY: Pain COMPARISON: NONE. TECHNIQUE: Multiple images axial images of the abdomen and pelvis were obtained without contrast administration. 3-D sagittal and coronal reconstructions were performed. All CT scans at this facility use dose modulation, iterative reconstruction, and/or weight based dosing when appropriate to reduce radiation dose to as low as reasonably achievable. FINDINGS: The lung bases are within normal limits. The liver is normal in size without solid or lesions. There is a 2.1 cm low-density lesion in the left lower liver which mostly represents a cyst. There is no intra or extrahepatic bile duct dilatation. The gallbladder contains no radiopaque filling defects or surrounding inflammatory changes. The spleen is normal in size and attenuation without focal lesions. The pancreas is within normal limits. The adrenal glands are within normal limits. The kidneys are normal in size and position without solid lesions. There are numerous bilateral intrarenal stones measuring less than 5 mm. The left kidney is unremarkable. There is right hydronephrosis and hydroureter and there is a 3 mm stone at the right ureterovesical junction. The aorta is normal in course and caliber. There is no retroperitoneal lymphadenopathy. There are no distended loops of bowel. There is no CT evidence of appendicitis. The abdominal wall is unremarkable. The bones and soft tissues are within normal Report limits. FINAL REPORT Dictated: 01/02/2022 9:53 am Hu Mccall MD, V. Signed (Electronic Signature): 01/02/2022 9:53 am Signed by: Hu Mccall MD, V. Transcribed by: CHEY Technologist: MARTHA Technical Comments Rectal Contrast Given? No Oral contrast amount in ml's: 0 [facility] Consent for Treatmenton 12-09 Consent for Treatment [id number]: 127 [facility] Discharge Instructionson Discharge Instructions [id number] :127 [facility] ED Clinical Summaryon 2021 ED Clinical Summary (Inserted Image. Eri ble to display) [address] [address] ED Clinical Summary Person Information Name: DILEEP CERNA [place] Age: 51 Years : 1970 Sex: Male Language: Comoran PCP: SHAHEED CARRENO DO Marital Status: Single Phone: [phone] Visit Id: Visit Reason: Flank pain; Abdominal pain; ABD PAIN Speciality: Acuity: 3 Enc Type: Emergency Med Service: Emergency Arrival: 01/01/2022 18:01:37 Discharge: 01/01/2022 20:31:48 LOS: 000 02:30 Checkin: 01/01/2022 18:01:37 Checkout: 01/01/2022 20:31:48 Dispo Type: Home (Routine DC) EVENTS: Event Name Event Status Request Date/Time Start Date/Time Complete Date/Time Arrive Complete 01/01/2022 18:01:37 01/01/2022 18:01:37 01/01/2022 18:01:37 Document Home Meds Request 01/01/2022 18:01:37 Triage Complete 01/01/2022 18:01:37 01/01/2022 18:11:19 01/01/2022 18:11:19 Registration Complete 01/01/2022 18:05:27 01/01/2022 18:05:27 01/01/2022 18:05:27 Reg Complete Request 01/01/2022 18:05:27 Bed Assign Complete 01/01/2022 18:11:36 01/01/2022 18:11:36 01/01/2022 18:11:36 Dr Exam Complete 01/01/2022 18:11:36 01/01/2022 18:13:27 01/01/2022 18:13:27 RN Exam Complete 01/01/2022 18:11:36 01/01/2022 18:20:18 01/01/2022 18:20:18 Registration Complete 01/01/2022 18:13:27 01/01/2022 18:22:18 01/01/2022 18:22:18 Meds Admin Complete 01/01/2022 18:15:54 01/01/2022 18:24:59 CT Complete 01/01/2022 18:15:54 01/01/2022 18:19:16 01/01/2022 18:59:46 Pending Labs Complete 01/01/2022 18:15:54 01/01/2022 18:58:22 Lab Complete 01/01/2022 18:15:54 01/01/2022 18:58:22 Urine Collect Complete 01/01/2022 18:15:54 01/01/2022 18:58:22 Dr Exam Complete 01/01/2022 18:17:16 01/01/2022 18:17:16 01/01/2022 18:17:16 Meds Admin Request 01/01/2022 18:19:19 Meds Admin Complete 01/01/2022 19:11:24 01/01/2022 19:24:01 Patient Care Request 01/01/2022 19:54:50 Discharge Complete 01/01/2022 19:54:51 01/01/2022 20:31:58 01/01/2022 20:31:58 Pending Labs Cancel 01/01/2022 20:02:15 01/01/2022 20:06:12 Pending Labs Cancel 01/01/2022 20:03:19 01/01/2022 20:04:34 Pending Labs Complete 01/01/2022 20:06:47 01/01/2022 20:06:47 01/01/2022 20:06:48 Meds Admin Complete 01/01/2022 20:14:29 01/01/2022 20:26:16 Transfer Complete 01/01/2022 20:31:58 01/01/2022 20:31:58 01/01/2022 20:31:58 ADDRESS: [address] [place] [phone] PHYS DOC NOTES: MEDICAL INFORMATION: Prescriptions Given: New Medications [id number], [address] [place], [place] [id number], [phone] acetaminophen-oxycodone (Percocet 325 mg-5 mg Tab) 1 Tablets By Mouth every 6 hours as needed as needed for pain for 3 Days. Refills: 0. ondansetron (Zofran ODT 4 mg Tab-Dis) 1 Tablets By Mouth 3 times a day. Refills: 0. tamsulosin (Flomax 0.4 mg Cap) 1 Capsules By Mouth every day. Refills: 0. Medications to Continue Taking That Have Changed [facility]/pharmacy #[id number], [address] [place], [place] [id number], [phone] START: naproxen (Naprosyn 500 mg Tab) 1 Tablets By Mouth 2 times a day as needed for pain. Refills: 0. Other Medications START: naproxen (Naprosyn 500 mg Tab) 1 Tablets By Mouth 2 times a day as needed as needed for pain. Refills: 0. Medications to Continue with No Changes Other Medications lidocaine topical (Lidoderm 5% Patch) 1 Patches Topical every day. apply 12 hours on and 12 hours off daily. Refills: 0. methocarbamol (Robaxin 500 mg Tab) 1 Tablets By Mouth 2 times a day as needed as needed for pain. Refills: 0. PATIENT EDUCATION INFORMATION: Instructions: Kidney Stones Follow up: With: Address: When: Erasmo ASTUDILLO, [address], [address] [address] Business (1) In 3 days 01/04/2022 DIAGNOSIS: Ureterolithiasis [facility] ED Patient Education Noteon 01-01-2022 ED Patient Education Note Urology Kidney Stones Kidney stones are solid, rock-like deposits that form inside of the kidneys. The kidneys are a pair of organs that make urine. A kidney stone may form in a kidney and move into other parts of the urinary tract, including the tubes that connect the kidneys to the bladder (ureters), the bladder, and the tube that carries urine out of the body (urethra). As the stone moves through these areas, it can cause intense pain and block the flow of urine. Kidney stones are created when high levels of certain minerals are found in the urine. The stones are usually passed out of the body through urination, but in some cases, medical treatment may be needed to remove them. What are the causes? Kidney stones may be caused by: ? A condition in which certain glands produce too much parathyroid hormone (primary hyperparathyroidism), which causes too much calcium buildup in the blood. ? A buildup of uric acid crystals in the bladder (hyperuricosuria). Uric acid is a chemical that the body produces when you eat certain foods. It usually exits the body in the urine. ? Narrowing (stricture) of one or both of the ureters. ? A kidney blockage that is present at (congenital obstruction). ? Past surgery on the kidney or the ureters, such as gastric bypass surgery. What increases the risk? The following factors may make you more likely to develop this condition: ? Having had a kidney stone in the past. ? Having a family history of kidney stones. ? Not drinking enough water. ? Eating a diet that is high in protein, salt (sodium), or sugar. ? Being overweight or obese. What are the signs or symptoms? Symptoms of a kidney stone may include: ? Pain in the side of the abdomen, right below the ribs (flank pain). Pain usually spreads (radiates) to the groin. ? Needing to urinate frequently or urgently. ? Painful urination. ? Blood in the urine (hematuria). ? Nausea. ? Vomiting. ? Fever and chills. How is this diagnosed? This condition may be diagnosed based on: ? Your symptoms and medical history. ? A physical exam. ? Blood tests. ? Urine tests. These may be done before and after the stone passes out of your body through urination. ? Imaging tests, such as a CT scan, abdominal X-ray, or ultrasound. ? A procedure to examine the inside of the bladder (cystoscopy). How is this treated? Treatment for kidney stones depends on the size, location, and makeup of the stones. Kidney stones will often pass out of the body through urination. You may need to: ? Increase your fluid intake to help pass the stone. In some cases, you may be given fluids through an IV and may need to be monitored at the hospital. ? Take medicine for pain. ? Make changes in your diet to help prevent kidney stones from coming back. Sometimes, medical procedures are needed to remove a kidney stone. This may involve: ? A procedure to break up kidney stones using: ? A focused beam of light (laser therapy). ? Shock waves (extracorporeal shock wave lithotripsy). ? Surgery to remove kidney stones. This may be needed if you have severe pain or have stones that block your urinary tract. Follow these instructions at home: Medicines ? Take [id number] and prescription medicines only as told by your health care provider. ? Ask your health care provider if the medicine prescribed to you requires you to avoid driving or using heavy machinery. Eating and drinking ? Drink enough fluid to keep your urine pale yellow. You may be instructed to drink at least 8?10 glasses of water each day. This will help you pass the kidney stone. ? If directed, change your diet. This may include: ? Limiting how much sodium you eat. ? Eating more fruits and vegetables. ? Limiting how much animal protein?such as red meat, poultry, fish, and eggs?you eat. ? Follow instructions from your health care provider about eating or drinking restrictions. General instructions ? Collect urine samples as told by your health care provider. You may need to collect a urine sample: ? 24 hours after you pass the stone. ? 8?12 weeks after passing the kidney stone, and every 6?12 months after that. ? Strain your urine every time you urinate, for as long as directed. Use the strainer that your health care provider recommends. ? Do not throw out the kidney stone after passing it. Keep the stone so it can be tested by your health care provider. Testing the makeup of your kidney stone may help prevent you from getting kidney stones in the future. ? Keep all follow-up visits as told by your health care provider. This is important. You may need follow-up X-rays or ultrasounds to make sure that your stone has passed. How is this prevented? To prevent another kidney stone: ? Drink enough fluid to keep your urine pale yellow. This is the best way to prevent kidney stones. ? Eat a healthy diet and follow (more content not included)... Normal [facility] ED Patient Summaryon 022 ED Patient Summary (Inserted Image. Eri ble to display) [address] [address] Patient Discharge Instructions Person Information Name: DILEEP CERNA Age: 51 Years Arrival Date: 01/01/2022 18:01:37 Discharge Diagnosis: Ureterolithiasis Primary Care Physician: SHAHEED CARRENO DO Provider Information Primary Provider: Gregor Mena DO Advanced Pr Intern:Jace Lai PA-C The exam and treatment you received in the Emergency Department were for an urgent problem and are not intended as complete care. It is important that you follow up with a doctor, nurse practitioner, or physician?s catering assistant for ongoing care. If your symptoms become worse or you do not improve as expected and you are unable to reach your usual health care provider, you should return to the Emergency Department. We are available 24 hours a day. DILEEP CERNA has been given the following list of patient education materials, prescriptions and follow-up instructions: Follow-up Instructions: With: Address: When: Erasmo TOBIN [address] [place] [address], [address], [place] [id number] Business (1) In 3 days 01/04/2022 In the event that this physician does not participate in your insurance network, please consult with your insurance company to find a nearby participating provider. Patient Education Materials: Kidney Stones A MESSAGE TO ALL PATIENTS REGARDING OPIOIDS PRESCRIPTION OPIOIDS: WHAT YOU NEED TO KNOW Prescription opioids can be used to help relieve aepsjsjn-er-vlsqrl pain and are often prescribed following a surgery or injury, or for certain health conditions. These medications can be an important part of the treatment but also come with serious risks. It is important to work with your healthcare provider to make sure you are getting the safest, most effective care. WHAT ARE THE RISKS AND SIDE EFFECTS OF OPIOID USE? Prescription opioids carry serious risks of addiction and overdose, especially with prolonged use. An opioid overdose, often marked by slowed breathing, can cause sudden . The use of prescription opioids can have a number of side effects as well, even when taken as directed: ? Tolerance?meaning you might need to take more of the medication for the same pain relief ? Physical dependence?meaning you have symptoms of withdrawal when a medication is stopped ? Increased sensitivity to pain ? Constipation ? Nausea, vomiting, and dry mouth ? Sleepiness and dizziness ? Confusion ? Depression ? Low levels of testosterone that can result in lower sex drive, energy, and strength ? Itching and sweating RISKS ARE GREATER WITH: ? History of drug misuse, substance use disorder, or overdose ? Mental health conditions (such as depression or anxiety) ? Sleep apnea ? Older age (65 years and older) ? Avoid alcohol while taking prescription opioids. Also, unless specifically advised by your health care provider, medications to avoid include: ? Benzodiazepines (such as Xanax or Valium) ? Muscle relaxants (such as Soma or Flexeril) ? Hypnotics (such as Ambien or Lunesta) ? Other prescription opioids KNOW YOUR OPTIONS Talk to your health care provider about ways to manage your pain that don?t involve prescription opioids. Some of these options may actually work better and have fewer risks and side effects. Options may include: ? Pain relievers such as acetaminophen, ibuprofen, and naproxen ? Some medication that are also used for depression or seizures ? Physical therapy and exercise ? Cognitive behavioral therapy, a psychological, goal-directed approach, in which patients learn how to modify physical, behavioral, and emotional triggers of pain and stress. IF YOU ARE PRESCRIBED OPIOIDS FOR PAIN: ? Never take opioids in greater amounts or more often than prescribed. ? Follow up with your primary health care provider. o Work together to create a plan on how to manage your pain. o Talk about ways to help manage your pain that don?t involve prescription opioids. o Talk about any and all concerns and side effects. ? Help prevent misuse and abuse o Never sell or share prescription opioids. o Never use another person?s prescription opioids. ? Store prescription opioids in a secure place and out of reach of others (this may include visitors, children, friends, and family). ? Safely dispose of unused prescription opioids: Find your community drug take-back program or your pharmacy mail-back program, or flush them down the toilet, following guidance from the Food and Drug Administration (www.fda.gov/Drugs/Resou rcesForYou). ? Visit www.cdc.gov/drugoverdose to learn about the risks of opioids abuse and overdose. ? If you believe you may be struggling with addiction, tell your health animal care attendant and ask for guidance or call [facility] National Helpline at 5-428-665-HELP. v Source: [place] Depa (more content not included)... Normal [facility] RAD - Preliminary Cat Scan R eporton 01-01-2022 RAD - Preliminary Cat Scan Report [id number] Normal [facility] UA With Cult Reflexon 2021 Bilirubin Ql (U) Negative Normal Negative [facility] Comment on above: Performed By: #### 1 [id number] ####[facility] [address] [place] [address] Clarity (U) CLEAR Normal Clear [facility] Comment on above: Performed By: #### 1 [id number] ####[facility] [address] [place] [address] Color (U) YELLOW Normal Yellow [facility] Comment on above: Performed By: #### 1 [id number] ####[facility] [address] [place] [address] Crystals LM Ql (Urine sed) Present Normal [facility] Comment on above: Performed By: #### 1 [id number] ####[facility] [address] [place] [address] Epithelial cells.squamous LM.HPF (Urine sed) [#/Area] 0-2 Normal 0-2 [facility] Comment on above: Performed By: #### 1 [id number] ####[facility] [address] [place] [address] Glucose Test strip (U) [Mass/Vol] Negative Normal Negative [facility] Comment on above: Performed By: #### 1 [id number] ####[facility] [address] [place] [address] Hemoglobin Ql (U) Negative Normal Negative [facility] Comment on above: Performed By: #### 1 [id number] ####[facility] [address] [facility] [place] [address] Ketones (U) [Mass/Vol] 1+ Abnormal Negative [facility] Comment on above: Performed By: #### 1 [id number] ####[facility] [address] [place] [address] [place].plasma/Lithiu m.RBC (Bld) [Mass ratio] 0-3 Normal 0-3 [facility] Comment on above: Performed By: #### 1 [id number] ####[address] [address] Mucus Ql (Urine sed) TRACE Normal [facility] Comment on above: Performed By: #### 1 [id number] ####[address] [address] Nitrite Ql (U) Negative Normal Negative [facility] Comment on above: Performed By: #### 1 [id number] ####[address] [address] pH (U) 6.0 [pH] Invalid Interpretation Code 5.0-9.0 [facility] Comment on above: Performed By: #### 1 [id number] ####[address] [address] Protein (U) [Mass/Vol] Negative Normal Negative [facility] Comment on above: Performed By: #### 1 [id number] ####[address] [address] Specific gravity (U) [Rel density] 1.025 Invalid Interpretation Code 1.005-1.030 [facility] Comment on above: Performed By: #### 1 [id number] ####[address] [address] Type of Urine collection method Clean Catch Normal [facility] Comment on above: Performed By: #### 1 [id number] ####[address] [address] Urobilinogen Qn (U) 0.2 {Constantin'U}/dL Normal 0.0-1.0 [facility] Comment on above: Performed By: #### 1 [id number] ####[address] [address] WBC Auto Ql (U) Negative Normal Negative [facility] Comment on above: Performed By: #### 1 [id number] ####[address] [address] WBC LM.HPF (Urine sed) [#/Area] 0-5 Normal 0-5 [facility] Comment on above: Performed By: #### 1 [id number] ####[facility] [address] [place] [address] URINALYSISOrdered By: Juancho macias on 01-01-2022 Bilirubin Ql (U) Negative (01/01/22 6:39 PM) Normal Negative [facility] UA Auto SS Clarity (U) Clear (01/01/22 6:39 PM) Normal Clear [facility] UA Auto SS Color (U) Yellow (01/01/22 6:39 PM) Normal Yellow [facility] UA Auto SS Crystals LM Ql (Urine sed) Present (01/01/22 6:39 PM) Normal [facility] UA Auto SS Epithelial cells.squamous LM.HPF (Urine sed) [#/Area] 0-2 /HPF Normal 0-2/HPF [facility] UA Auto SS Glucose Test strip (U) [Mass/Vol] Negative (01/01/22 6:39 PM) Normal Negative [facility] UA Auto SS Hemoglobin Ql (U) Negative (01/01/22 6:39 PM) Normal Negative [facility] UA Auto SS Ketones (U) [Mass/Vol] 1+ *ABN* (01/01/22 6:39 PM) Invalid Interpretation Code Negative [facility] UA Auto SS [place].plasma/Lithiu m.RBC (Bld) [Mass ratio] 0-3 /HPF Normal 0-3/HPF [facility] UA Auto SS Mucus Ql (Urine sed) Trace (01/01/22 6:39 PM) Normal [facility] UA Auto SS Nitrite Ql (U) Negative (01/01/22 6:39 PM) Normal Negative [facility] UA Auto SS pH (U) 6.0 *NA* (01/01/22 6:39 PM) Invalid Interpretation Code 5.0 - 9.0 [facility] UA Auto SS Protein (U) [Mass/Vol] Negative (01/01/22 6:39 PM) Normal Negative [facility] UA Auto SS Specific gravity (U) [Rel density] 1.025 *NA* (01/01/22 6:39 PM) Invalid Interpretation Code 1.005 - 1.030 [facility] UA Auto SS UA Spec Desc Clean Catch (01/01/22 6:39 PM) Normal [facility] UA Auto SS Urobilinogen Qn (U) 0.1274471 {Constantin'U}/dL Normal 0.0 - 1.0 EU/dL [facility] UA Auto SS WBC Auto Ql (U) Negative (01/01/22 6:39 PM) Normal Negative [facility] UA Auto SS WBC LM.HPF (Urine sed) [#/Area] 0-5 /HPF Normal 0-5/HPF [facility] UA Auto SS CBC AUTO DIFFon 12-08-2021 BASO # 0.0 103/ul Normal 0.0-0.1 [facility] Comment on above: Performed By: #### C BC #### [facility] [address] [place] [address] [address] Charles Bartlett Basophils/100 WBC (Bld) 0.5 % Normal 0.2-2.0 [facility] Comment on above: Performed By: #### C BC #### [facility] [address] [place] [address] Dr. Charles Bartlett EO # 0.1 103/ul Normal 0.0-0.7 [facility] Comment on above: Performed By: #### C BC #### [facility] [address] [place] [address] Dr. Charles Bartlett Eosinophils/100 WBC (Bld) 1.0 % Normal 0.9-7.0 [facility] Comment on above: Performed By: #### C BC #### [facility] [address] [place] [address] Dr. Charles Bartlett Erythrocyte distribution width (RBC) [Ratio] 13.0 % Normal 11.0-15.0 [facility] Comment on above: Performed By: #### C BC #### [facility] [address] [place] [address] Dr. Charles Bartlett Hematocrit (Bld) [Volume fraction] 45.2 % Normal 42.0-54.0 [facility] Comment on above: Performed By: #### C BC #### [facility] [address] [place] [address] Dr. Charles Bartlett Hemoglobin (Bld) [Mass/Vol] 14.6 g/dL Normal 14.0-18.0 [facility] Comment on above: Performed By: #### C BC #### [facility] [address] [place] [address] Dr. Charles Bartlett IG # 0.01 10e3/ul Normal 0.00-0.03 [facility] Comment on above: Performed By: #### C BC #### [facility] [address] [place] [address] Dr. Charles Bartlett IG % 0.2 % Normal 0.0-0.5 [facility] Comment on above: Performed By: #### C BC #### [facility] [address] [place] [address] Dr. Charles Bartlett LYMPH # 1.6 103/ul Normal 1.2-3.8 [facility] Comment on above: Performed By: #### C BC #### [facility] [address] [place] [address] Dr. Charles Bartlett Lymphocytes/100 WBC (Bld) 27.4 % Normal 20.5-60.0 [facility] Comment on above: Performed By: #### C BC #### [facility] [address] [place] [address] Dr. Charles Bartlett MANUAL DIFF REQ NO Normal [facility] Comment on above: Performed By: #### C BC #### [facility] [address] [place] [address] Dr. Charles Bartlett MCH (RBC) [Entitic mass] 28.3 pg Normal 25.9-34.0 [facility] Comment on above: Performed By: #### C BC #### [facility] [address] [place] [address] Dr. Charles Bartlett MCHC (RBC) [Mass/Vol] 32.3 g/dL Normal 29.9-35.2 [facility] Comment on above: Performed By: #### C BC #### [facility] [address] [place] [address] Dr. Charles Bartlett MCV (RBC) [Entitic vol] 87.6 fL Normal 80.0-94.0 [facility] Comment on above: Performed By: #### C BC #### [facility] [address] [place] [address] Dr. Charles Bartlett MONO # 0.5 103/ul Normal 0.3-0.8 [facility] Comment on above: Performed By: #### C BC #### [facility] [address] [address] [address] Charles Bartlett Monocytes/100 WBC (Bld) 8.4 % Normal 1.7-12.0 [facility] Comment on above: Performed By: #### C BC #### [facility] [address] [address] [address] Charles Bartlett NEUT # 3.7 103/ul Normal 1.4-6.5 [facility] Comment on above: Performed By: #### C BC #### [facility] [address] [place] [address] Dr. Charles Bartlett Neutrophils/100 WBC (Bld) 62.5 % Normal 43.0-75.0 [facility] Comment on above: Performed By: #### C BC #### [facility] [address] [place] [address] Dr. Charles Bartlett Platelet mean volume (Bld) [Entitic vol] 9.4 fL Critically low 9.5-13.5 [facility] Comment on above: Performed By: #### C BC #### [facility] [address] [place] [address] Dr. Charles Bartlett PLT 295 103/ul Normal 150-450 [facility] Comment on above: Performed By: #### C BC #### [facility] [address] [place] [address] Dr. Charles Bartlett RBC 5.16 106/ul Normal 4.70-6.10 [facility] Comment on above: Performed By: #### C BC #### [facility] [address] [place] [address] Dr. Charles Bartlett WBC 5.9 103/ul Normal 4.0-11.0 [facility] Comment on above: Performed By: #### C BC #### [facility] [address] [place] [address] Dr. Charles Bartlett LIPID PROFILEon 12-08-2021 CHOL-HDL RATIO NORM SEE BELOW Normal [facility] Comment on above: Result Comment: 3.3 - 4.4 LOW RISK 4.4 - 7.1 AVERAGE RISK 7.1 - 11.0 MODERATE RISK >11.0 HIGH RISK Performed By: #### L IPID, CMP #### [facility] [address] [place] [address] [address] Charles Bartlett Cholesterol [Mass/Vol] 211 mg/dL Critically high <=200 [facility] Comment on above: Performed By: #### L IPID, CMP #### [facility] [address] [address] [address] Charles Bartlett Cholesterol in HDL [Mass/Vol] 75 mg/dL Critically high 40-60 [facility] Comment on above: Performed By: #### L IPID, CMP #### [facility] [address] [address] [address] Charles Bartlett Cholesterol in LDL [Mass/Vol] 126.2 mg/dL Normal [facility] Comment on above: Performed By: #### L IPID, CMP #### [facility] [address] [address] [address] Charles Bartlett Cholesterol.total/Cho lesterol in HDL [Mass ratio] 2.8 {ratio} Normal [facility] Comment on above: Performed By: #### L IPID, CMP #### [facility] [address] [place] [address] Dr. Charles Bartlett HDL NORMAL > or = 60 mg/dl - LO W CARDIOVASCULAR RISK <40 mg/dl - HIGH CARDIOVASCULAR RISK Normal [facility] Comment on above: Performed By: #### L IPID, CMP #### [facility] [address] [address] [address] Charles Bartlett LDL CALC NORMAL SEE BELOW Normal [facility] Comment on above: Result Comment: <100 mg/dl OPTIMAL 100 - 129 mg/dl NEAR OR ABOVE OPTIMAL 130 - 159 mg/dl BORDERLINE HIGH 160 - 189 mg/dl HIGH >190 mg/dl VERY HIGH Performed By: #### L IPID, CMP #### [facility] [address] [address] [address] Charles Bartlett Triglyceride [Mass/Vol] 49 mg/dL Normal <=150 [facility] Comment on above: Performed By: #### L IPID, CMP #### [facility] [address] [place] [address] Dr. Charles Bartlett VLDL CALC 9.8 mg/dL Normal [facility] Comment on above: Performed By: #### L IPID, CMP #### [facility] [address] [place] [address] Dr. Charles Bartlett PROF 14(COMP METB)on 022 Albumin [Mass/Vol] 4.4 g/dL Normal 3.4-5.0 [facility] Comment on above: Performed By: #### L IPID, CMP #### [facility] [address] [place] [address] Dr. Charles Bartlett Albumin/Globulin [Mass ratio] 1.5 {ratio} Normal [facility] Comment on above: Performed By: #### L IPID, CMP #### [facility] [address] [place] [address] Dr. Charles Bartlett ALP [Catalytic activity/Vol] 72 U/L Normal 46-116 [facility] Comment on above: Performed By: #### L IPID, CMP #### [facility] [address] [place] [address] Dr. Charles aBrtlett ALT [Catalytic activity/Vol] 49 U/L Normal 16-63 [facility] Comment on above: Performed By: #### L IPID, CMP #### [facility] [address] [place] [address] Dr. Charles Bartlett Anion gap [Moles/Vol] 12.6 mmol/L Normal [facility] Comment on above: Performed By: #### L IPID, CMP #### [facility] [address] [place] [address] Dr. Charles Bartlett AST [Catalytic activity/Vol] 28 U/L Normal 15-37 [facility] Comment on above: Performed By: #### L IPID, CMP #### [facility] [address] [place] [address] Dr. Charles Bartlett Bilirubin [Mass/Vol] 0.8 mg/dL Normal 0.2-1.0 [facility] Comment on above: Performed By: #### L IPID, CMP #### [facility] [address] [place] [address] Dr. Charles Bartlett Calcium [Mass/Vol] 9.5 mg/dL Normal 8.5-10.1 [facility] Comment on above: Performed By: #### L IPID, CMP #### [facility] [address] [place] [address] Dr. Charles Bartlett Chloride [Moles/Vol] 102 mmol/L Normal 98-107 [facility] Comment on above: Performed By: #### L IPID, CMP #### [facility] [address] [place] [address] Dr. Charles Bartlett CO2 [Moles/Vol] 29.4 mmol/L Normal 21.0-32.0 [facility] Comment on above: Performed By: #### L IPID, CMP #### [facility] [address] [place] [address] Dr. Charles Bartlett Creatinine [Mass/Vol] 1.20 mg/dL Normal 0.70-1.30 [facility] Comment on above: Performed By: #### L IPID, CMP #### [facility] [address] [place] [address] Dr. Charles Bartlett EGFR-AF [place] >60 Normal >=60 [facility] Comment on above: Performed By: #### L IPID, CMP #### [facility] [address] [place] [address] Dr. Charles Batrlett EGFR-NON AF [place] >60 Normal >=60 [facility] Comment on above: Performed By: #### L IPID, CMP #### [facility] [address] [place] [address] Dr. Charles Bartlett Globulin (S) [Mass/Vol] 3.0 g/dL Normal [facility] Comment on above: Performed By: #### L IPID, CMP #### [facility] [address] [place] [address] Dr. Charles Bartlett Glucose [Mass/Vol] 88 mg/dL Normal 74-106 [facility] Comment on above: Performed By: #### L IPID, CMP #### [facility] [address] [place] [address] Dr. Charles Bartlett Potassium [Moles/Vol] 4.0 mmol/L Normal 3.5-5.1 [facility] Comment on above: Performed By: #### L IPID, CMP #### [facility] [address] [place] [address] Dr. Charles Bartlett Protein [Mass/Vol] 7.4 g/dL Normal 6.4-8.2 [facility] Comment on above: Performed By: #### L IPID, CMP #### [facility] [address] [place] [address] Dr. Charles Bartlett Sodium [Moles/Vol] 140 mmol/L Normal 136-145 [facility] Comment on above: Performed By: #### L IPID, CMP #### [facility] [address] [place] [address] Dr. Charles Bartlett Urea nitrogen [Mass/Vol] 15.0 mg/dL Normal 7.0-18.0 [facility] Comment on above: Performed By: #### L IPID, CMP #### [facility] [address] [place] [address] Dr. Charles Bartlett Urea nitrogen/Creatinine [Mass ratio] 12.5 mg/mg Normal [facility] Comment on above: Performed By: #### L IPID, CMP #### [facility] [address] [place] [address] Dr. Charles Bartlett CBC AUTO DIFFon 06-01-2021 BASO # 0.0 103/ul Normal 0.0-0.1 [facility] Comment on above: Performed By: #### C BC #### [facility] [address] [place] [address] Dr. Charles Bartlett Basophils/100 WBC (Bld) 0.4 % Normal 0.2-2.0 [facility] Comment on above: Performed By: #### C BC #### [facility] [address] [place] [address] Dr. Charles Bartlett EO # 0.2 103/ul Normal 0.0-0.7 [facility] Comment on above: Performed By: #### C BC #### [facility] [address] [place] [address] Dr. Charles Bartlett Eosinophils/100 WBC (Bld) 2.1 % Normal 0.9-7.0 [facility] [facility] Comment on above: Performed By: #### C BC #### [facility] [address] [place] [address] Dr. Charles Bartlett Erythrocyte distribution width (RBC) [Ratio] 12.6 % Normal 11.0-15.0 [facility] Comment on above: Performed By: #### C BC #### [facility] [address] [place] [address] Dr. Charles Bartlett Hematocrit (Bld) [Volume fraction] 47.6 % Normal 42.0-54.0 [facility] Comment on above: Performed By: #### C BC #### [facility] [address] [place] [address] Dr. Charles Bartlett Hemoglobin (Bld) [Mass/Vol] 15.5 g/dL Normal 14.0-18.0 [facility] Comment on above: Performed By: #### C BC #### [facility] [address] [place] [address] Dr. Charles Bartlett IG # 0.02 10e3/ul Normal 0.00-0.03 [facility] Comment on above: Performed By: #### C BC #### [facility] [address] [place] [address] Dr. Charles Bartlett IG % 0.3 % Normal 0.0-0.5 [facility] Comment on above: Performed By: #### C BC #### [facility] [address] [place] [address] Dr. Charles Bartlett LYMPH # 1.7 103/ul Normal 1.2-3.8 [facility] Comment on above: Performed By: #### C BC #### [facility] [address] [place] [address] Dr. Charles Bartlett Lymphocytes/100 WBC (Bld) 24.7 % Normal 20.5-60.0 [facility] Comment on above: Performed By: #### C BC #### [facility] [address] [place] [address] Dr. Charles Bartlett MANUAL DIFF REQ NO Normal [facility] Comment on above: Performed By: #### C BC #### [facility] [address] [place] [address] Dr. Charles Bartlett MCH (RBC) [Entitic mass] 28.3 pg Normal 25.9-34.0 [facility] Comment on above: Performed By: #### C BC #### [facility] [address] [place] [address] Dr. Charles Bartlett MCHC (RBC) [Mass/Vol] 32.6 g/dL Normal 29.9-35.2 [facility] Comment on above: Performed By: #### C BC #### [facility] [address] [place] [address] Dr. Charles Bartlett MCV (RBC) [Entitic vol] 86.9 fL Normal 80.0-94.0 [facility] Comment on above: Performed By: #### C BC #### [facility] [address] [place] [address] Dr. Charles Bartlett MONO # 0.6 103/ul Normal 0.3-0.8 [facility] Comment on above: Performed By: #### C BC #### [facility] [address] [place] [address] Dr. Charles Bartlett Monocytes/100 WBC (Bld) 8.5 % Normal 1.7-12.0 [facility] Comment on above: Performed By: #### C BC #### [facility] [address] [place] [address] Dr. Charles Bartlett NEUT # 4.5 103/ul Normal 1.4-6.5 [facility] Comment on above: Performed By: #### C BC #### [facility] [address] [place] [address] Dr. Charles Bartlett Neutrophils/100 WBC (Bld) 64.0 % Normal 43.0-75.0 [facility] Comment on above: Performed By: #### C BC #### [facility] [address] [place] [address] Dr. Charles Bartlett Platelet mean volume (Bld) [Entitic vol] 9.5 fL Normal 9.5-13.5 [facility] Comment on above: Performed By: #### C BC #### [facility] [address] [place] [address] Dr. Charles Bartlett PLT 267 103/ul Normal 150-450 [facility] Comment on above: Performed By: #### C BC #### [facility] [address] [place] [address] Dr. Charles Bartlett RBC 5.48 106/ul Normal 4.70-6.10 [facility] Comment on above: Performed By: #### C BC #### [facility] [address] [place] [address] Dr. Charles Bartlett WBC 7.0 103/ul Normal 4.0-11.0 [facility] Comment on above: Performed By: #### C BC #### [facility] [address] [place] [address] Dr. Charles Bartlett LIPID PROFILEon 06-01-2021 CHOL-HDL RATIO NORM SEE BELOW Normal [facility] Comment on above: Result Comment: 3.3 - 4.4 LOW RISK 4.4 - 7.1 AVERAGE RISK 7.1 - 11.0 MODERATE RISK >11.0 HIGH RISK Performed By: #### L IPID, CMP #### [facility] [address] [place] [address] Dr. Charles Bartlett Cholesterol [Mass/Vol] 213 mg/dL Critically high <=200 [facility] Comment on above: Performed By: #### L IPID, CMP #### [facility] [address] [place] [address] Dr. Charles Bartlett Cholesterol in HDL [Mass/Vol] 72 mg/dL Normal [facility] Comment on above: Performed By: #### L IPID, CMP #### [facility] [address] [address] [address] Charles Bartlett Cholesterol in LDL [Mass/Vol] 123.6 mg/dL Normal [facility] Comment on above: Performed By: #### L IPID, CMP #### [facility] [address] [place] [address] Dr. Charles Bartlett Cholesterol.total/Cho lesterol in HDL [Mass ratio] 3.0 {ratio} Normal [facility] Comment on above: Performed By: #### L IPID, CMP #### [facility] [address] [address] [address] Charles Bartlett HDL NORMAL > or = 60 mg/dl - LO W CARDIOVASCULAR RISK <40 mg/dl - HIGH CARDIOVASCULAR RISK Normal [facility] Comment on above: Performed By: #### L IPID, CMP #### [facility] [address] [place] [address] Dr. Charles Bartlett LDL CALC NORMAL SEE BELOW Normal [facility] Comment on above: Result Comment: <100 mg/dl OPTIMAL 100 - 129 mg/dl NEAR OR ABOVE OPTIMAL 130 - 159 mg/dl BORDERLINE HIGH 160 - 189 mg/dl HIGH >190 mg/dl VERY HIGH Performed By: #### L IPID, CMP #### [facility] [address] [place] [address] Dr. Charles Bartlett Triglyceride [Mass/Vol] 87 mg/dL Normal <=150 [facility] Comment on above: Performed By: #### L IPID, CMP #### [facility] [address] [place] [address] Dr. Charles Bartlett VLDL CALC 17.4 mg/dL Normal [facility] Comment on above: Performed By: #### L IPID, CMP #### [facility] [address] [address] [address] Charles Bartlett PROF 14(COMP METB)on 021 Albumin [Mass/Vol] 4.4 g/dL Normal 3.5-5.0 [facility] Comment on above: Performed By: #### L IPID, CMP #### [facility] [address] [place] [address] Dr. Charles Bartlett Albumin/Globulin [Mass ratio] 1.4 {ratio} Normal [facility] Comment on above: Performed By: #### L IPID, CMP #### [facility] [address] [place] [address] Dr. Charles Bartlett ALP [Catalytic activity/Vol] 75 U/L Normal 38-126 [facility] Comment on above: Performed By: #### L IPID, CMP #### [facility] [address] [place] [address] Dr. Charles Bartlett ALT [Catalytic activity/Vol] 46 U/L Normal 21-72 [facility] Comment on above: Performed By: #### L IPID, CMP #### [facility] [address] [place] [address] Dr. Charles Bartlett Anion gap [Moles/Vol] 13.3 mmol/L Normal [facility] Comment on above: Performed By: #### L IPID, CMP #### [facility] [address] [place] [address] Dr. Charles Bartlett AST [Catalytic activity/Vol] 24 U/L Normal 17-59 [facility] Comment on above: Performed By: #### L IPID, CMP #### [facility] [address] [place] [address] Dr. Charles Bartlett Bilirubin [Mass/Vol] 0.5 mg/dL Normal 0.2-1.3 [facility] Comment on above: Performed By: #### L IPID, CMP #### [facility] [address] [place] [address] Dr. Charles Bartlett Calcium [Mass/Vol] 9.5 mg/dL Normal 8.4-10.2 [facility] Comment on above: Performed By: #### L IPID, CMP #### [facility] [address] [place] [address] Dr. Charles Bartlett Chloride [Moles/Vol] 101 mmol/L Normal 98-107 [facility] Comment on above: Performed By: #### L IPID, CMP #### [facility] [address] [place] [address] Dr. Charles Bartlett CO2 [Moles/Vol] 29.9 mmol/L Normal 22.0-30.0 [facility] Comment on above: Performed By: #### L IPID, CMP #### [facility] [address] [place] [address] Dr. Charles Bartlett Creatinine [Mass/Vol] 1.07 mg/dL Normal 0.66-1.25 [facility] Comment on above: Performed By: #### L IPID, CMP #### [facility] [address] [place] [address] Dr. Charles Bartlett EGFR-AF [place] >60 Normal >=60 [facility] Comment on above: Performed By: #### L IPID, CMP #### [facility] [address] [place] [address] Dr. Charles Bartlett EGFR-NON AF [place] >60 Normal >=60 [facility] Comment on above: Performed By: #### L IPID, CMP #### [facility] [address] [place] [address] Dr. Charles Bartlett Globulin (S) [Mass/Vol] 3.1 g/dL Normal [facility] Comment on above: Performed By: #### L IPID, CMP #### [facility] [address] [place] [address] Dr. Charles Bartlett Glucose [Mass/Vol] 96 mg/dL Normal 74-106 [facility] Comment on above: Performed By: #### L IPID, CMP #### [facility] [address] [place] [address] Dr. Charles Bartlett Potassium [Moles/Vol] 4.2 mmol/L Normal 3.4-5.0 [facility] Comment on above: Performed By: #### L IPID, CMP #### [facility] [address] [place] [address] Dr. Charles Bartlett Protein [Mass/Vol] 7.5 g/dL Normal 6.1-8.2 [facility] Comment on above: Performed By: #### L IPID, CMP #### [facility] [address] [place] [address] Dr. Charles Bartlett Sodium [Moles/Vol] 140 mmol/L Normal 137-145 [facility] Comment on above: Performed By: #### L IPID, CMP #### [facility] [address] [address] [address] Charles Bartlett Urea nitrogen [Mass/Vol] 13.0 mg/dL Normal 9.0-20.0 [facility] Comment on above: Performed By: #### L IPID, CMP #### [facility] [address] [address] [address] Charles Bartlett Urea nitrogen/Creatinine [Mass ratio] 12.1 mg/mg Normal [facility] Comment on above: Performed By: #### L IPID, CMP #### [facility] [address] [address] [address] Charles Bartlett Covid-19 PCR (CVDTB)on SARS-CoV-2 (COVID-19) RNA SANDY+probe Ql (Unsp spec) Not detected Normal NOT DETECTED [facility] Comment on above: Result Comment: This test is not yet approved or cleared by the [place] FDA. When there are no FDA-approved or cleared tests available, and other criteria are met, FDA can make tests available under an emergency access mechanism called an Emergency Use Authorization (EUA). The EUA for this test is supported by the [employer] of Health and Human Service's (HHS's) declaration that circumstances exist to justify the emergency use of in vitro diagnostics for the detection and/or diagnosis of the virus that causes COVID-19. This EUA will remain in effect (meaning this test can be used) for the duration of the COVID-19 declaration justifying emergency of IVDs, unless it is terminated or revoked by FDA (after which the test may no longer be used). When diagnostic testing is negative, the possibility of a false negative should be considered in the context of a patient's recent exposures and the presence of clinical signs and symptoms consistent with SARS-CoV-2. Performed By: #### C VDTBH, CVDAGS #### [facility] [address] [address] Ham Reyes SYMPTOMATIC COVID-19 ANTIGEN on 03-10-2021 EUA Statement SEE BELOW Normal [facility] Comment on above: Result Comment: This test has not been FDA cleared or approved, but has been authorized by the FDA under an Emergency Use Authorization (EUA) for use by authorized laboratories certified under CLIA that meet the requirements to perform moderate or high complexity testing. This test has been authorized only for the detection of proteins from SARS-CoV-2, not for any other viruses or pathogens. The emergency use of this test is authorized for the duration of the declaration that circumstances exist justifying the authorization of emergency use of in vitro diagnostic tests for detection and/or diagnosis of Covid-19 under section 564(b)(1) of the Act, 21 U.S.C. 360bbb-3(b)(1), unless the declaration is terminated or authorization is revoked sooner. Performed By: #### C MELLY, TAVOAGS #### [facility] [address] [place], [place] [address] Ham Reyes SARS-CoV-2 (COVID-19) RNA SANDY+probe Ql (Unsp spec) Negative Normal NEGATIVE [facility] Comment on above: Result Comment: CONF IRMATION BY PCR PENDING PER CDC GUIDELINES/ SYMPTOMATIC PATIENT. Performed By: #### C ELIAN, CVDAGS #### [facility] [address] [place], [place] [address] Ham Reyes Vital Signs Date Time Vital Sign Value Performing Clinician Facility 04-04-2024 17:36-0400 Diastolic blood pressure 72 mm[Hg] Eligio Hooper [facility] 04-04-2024 17:36-0400 Heart rate 68 /min Eligio Hooper [facility] 04-04-2024 17:36-0400 Mean blood pressure 85 mm[Hg] Eligio Hooper [facility] 04-04-2024 17:36-0400 Respiratory rate 15 /min Eligio Hooper [facility] 04-04-2024 17:36-0400 SaO2% (BldA) [Mass fraction] 98 % Eligio Hooper [facility] 04-04-2024 17:36-0400 Systolic blood pressure 111 mm[Hg] Eligio Rufus [facility] 04-04-2024 16:42-0400 Diastolic blood pressure 88 mm[Hg] Eligio Rufus [facility] 04-04-2024 16:42-0400 Heart rate 70 /min Eligio Rufus [facility] 04-04-2024 16:42-0400 Mean blood pressure 109 mm[Hg] Eligio Rufus [facility] 04-04-2024 16:42-0400 Respiratory rate 16 /min Eligio Rufus [facility] 04-04-2024 16:42-0400 SaO2% (BldA) [Mass fraction] 99 % Eligio Rufus [facility] 04-04-2024 16:42-0400 Systolic blood pressure 150 mm[Hg] Eligio Rufus [facility] 04-04-2024 14:38-0400 Body temperature 98.42 [degF] Eligio Rufus [facility] 04-04-2024 14:38-0400 Diastolic blood pressure 98 mm[Hg] Eligio Rufus [facility] 04-04-2024 14:38-0400 Heart rate 62 /min Eligio Rufus [facility] 04-04-2024 14:38-0400 Respiratory rate 18 /min Eligio Rufus [facility] 04-04-2024 14:38-0400 SaO2% (BldA) [Mass fraction] 99 % Eligio Rufus [facility] 04-04-2024 14:38-0400 Systolic blood pressure 166 mm[Hg] Eligio Hooper [facility] 11-29-2023 14:25-0400 Body height 177.[address] [facility] 11-29-2023 14:25-0400 Body mass index (BMI) [Ratio] 30 kg/m2 [facility] 11-29-2023 14:25-0400 Body weight 94.[address] [facility] 11-29-2023 14:25-0400 Diastolic blood pressure 88 mm[Hg] [facility] 11-29-2023 14:25-0400 Heart rate 73 /min [facility] 11-29-2023 14:25-0400 Respiratory rate 12 /min [facility] 11-29-2023 14:25-0400 Systolic blood pressure 135 mm[Hg] [facility] 07-24-2023 09:29-0500 Blood Pressure Location Arcadio Cortez [facility] 07-24-2023 09:29-0500 Body temperature 98.42 [degF] Arcadio Cortez [facility] 07-24-2023 09:29-0500 Diastolic blood pressure 88 mm[Hg] Arcadio Cortez [facility] 07-24-2023 09:29-0500 Heart rate 97 /min Arcadio Cortez [facility] 07-24-2023 09:29-0500 SaO2% (BldA) [Mass fraction] 97 % Arcadio Cortez [facility] 07-24-2023 09:29-0500 Systolic blood pressure 136 mm[Hg] Arcadio Cortez [facility] 10-06-2022 14:54-0400 Blood Pressure Location KEN GIRALDO [facility] 10-06-2022 14:54-0400 Body temperature 98.06 [degF] KEN SIDELL [facility] 10-06-2022 14:54-0400 Diastolic blood pressure 84 mm[Hg] KEN SIDELL [facility] 10-06-2022 14:54-0400 Heart rate 70 /min KEN SIDELL [facility] 10-06-2022 14:54-0400 SaO2% (BldA) [Mass fraction] 96 % KEN SIDELL [facility] 10-06-2022 14:54-0400 Systolic blood pressure 132 mm[Hg] KEN SIDELL [facility] 01-01-2022 20:57-0400 Diastolic blood pressure 84 mm[Hg] Gregor Rajesh [facility] 01-01-2022 20:57-0400 Systolic blood pressure 141 mm[Hg] Gregor Rajesh [facility] 01-01-2022 20:13-0400 Body temperature 97.7 [degF] Gregor Rajesh [facility] 01-01-2022 20:13-0400 Diastolic blood pressure 84 mm[Hg] Gregor Rajesh [facility] 01-01-2022 20:13-0400 Heart rate 77 /min Gregor Rajesh [facility] 01-01-2022 20:13-0400 Mean blood pressure 103 mm[Hg] Gregor Rajesh [facility] 01-01-2022 20:13-0400 Respiratory rate 20 /min Gregor Rajesh [facility] 01-01-2022 20:13-0400 SaO2% (BldA) [Mass fraction] 100 % Gregor Solimane [facility] 01-01-2022 20:13-0400 Systolic blood pressure 141 mm[Hg] Gregor Rajesh [facility] 01-01-2022 19:02-0400 Diastolic blood pressure 101 mm[Hg] Gregor Rajesh [facility] 01-01-2022 19:02-0400 Heart rate 66 /min Gregor Rajesh [facility] 01-01-2022 19:02-0400 Mean blood pressure 116 mm[Hg] Gregor Rajesh [facility] 01-01-2022 19:02-0400 Respiratory rate 18 /min Gregor Solimane [facility] 01-01-2022 19:02-0400 SaO2% (BldA) [Mass fraction] 100 % Gregor Solimane [facility] 01-01-2022 19:02-0400 Systolic blood pressure 147 mm[Hg] Gregor Rajesh [facility] 01-01-2022 18:07-0400 Body temperature 97.7 [degF] Gregor Solimane [facility] 01-01-2022 18:07-0400 Heart rate 67 /min Gregor Rajesh [facility] 01-01-2022 18:07-0400 Respiratory rate 20 /min Gregor Rajesh [facility] 01-01-2022 18:07-0400 SaO2% (BldA) [Mass fraction] 100 % Gregor Solimane [facility] Encounters Encounter Date Encounter Type Care Provider Facility Start: 04-04-2024 End: 04-04-2024 Emergency department patient visit Eligio Hooper [facility] Start: 11-29-2023 End: 11-29-2023 ambulatory [facility] Work Phone: Start: 11-29-2023 End: 11-29-2023 Encounter for general adult medical examination without abnormal findings [facility] Start: 11-29-2023 End: 11-29-2023 Patient encounter procedure [facility] Work Phone: Start: 07-24-2023 End: 07-24-2023 Patient encounter procedure Arcadio Cortez [facility] Start: 10-06-2022 End: 10-07-2022 ambulatory KEN GIRALDO Facility:[facility] Start: 10-06-2022 End: 10-06-2022 Patient encounter procedure KEN Chen LISAJAYRO [facility] Start: 10-06-2022 End: 10-06-2022 Well adult monitoring check done KEN Chen LISAJAYRO [facility] Start: 09-23-2022 ambulatory Rhaeel CASTAÑEDA Facility :[facility] Start: 07-08-2022 End: 07-09-2022 ambulatory Taz MASON Facility:[facility] Start: 01-31-2022 ambulatory Raheel Loerai ty:PAT Paula Start: 01-01-2022 End: 01-01-2022 Emergency department patient visit Gregor Mena Facility:[facility] Start: 01-01-2022 End: 01-01-2022 Emergency department patient visit Gregor Mena [facility] Start: 12-15-2021 Encounter for genera l adult medical examination without abnormal findings DR SHAHEED CARRENO [facility] Start: 12-08-2021 End: 12-09-[address] SHAHEED CARRENO Facility:[facility] Start: 12-08-2021 End: 12-09-2021 Encounter for general adult medical examination without abnormal findings DR SHAHEED CARRENO Facility:[facility] Start: 06-01-2021 End: 06-02-[address] SHAHEED CARRENO Facility:[facility] Start: 03-10-2021 End: 03-10-[address] SHAHEED CARRENO Facility:[facility] Procedures Date Procedure Procedure Detail Performing Clinician Start: 12-08-[address] DAVID CARRENO Comment on above: Performed By: #### P SAD #### [facility] [address] [place] [address] Dr. Charles Bartlett Start: 06-01-[address] DAVID ACRRENO Comment on above: Performed By: #### P SASC #### [facility] [address] [place] [address] Dr. Charles Bartlett Start: 03-21-2016 Robotic-assisted umb ilical herniorrhaphy with 12 cm. Symbotex mesh insertion Gregor Mena bilateral myringotomy Gregor bermudez umbilical hernia Gregor nunez Plan of Treatment Date Care Activity Detail Author Comprehensive metabo lic 2000 panel - Serum or Plasma [facility] Immunizations Immunization Date Immunization Notes Care Provider Fa cility 10-29-2020 SARS-CoV-2 (COVID-19 ) mRNA BNT-162b2 pedro Cortez [facility] 2020 SARS-CoV-2 (COVID-19 ) mRNA BNT-162b2 vax Arcadio Cortez [facility] Payers Date Payer Category Payer Unknown [id number] 2022 Unknown [id number] 1969 Unknown [id number] 2.16.84 [id number] 1969 Unknown [id number] 2.16.84 [id number] 1969 Unknown [id number] 2.16.84 [id number] 1969 Unknown [id number] 2.16.8 [id number] 1969 Unknown [id number] 2.16.8 [id number] 1969 Unknown [id number] 2.16.8 [id number] 1969 Unknown [id number] 2.16.8 [id number] 1969 Unknown [id number] 2.16.8 [id number] 1969 Unknown [id number] 2.16.8 [id number] 1959 Unknown [id number] Social History Date Type Detail Facility Start: 05-06-2018 End: 07-24-2023 Tobacco smoking status Never smoked tobacco (finding) [facility] Sex Assigned At Male [facility] Tobacco smoking status Never [facility] Start: 1970 Sex Assigned At Male F [facility] Functional Status Date Assessment Result Facility 04-04-2024 Functional Status N/A [facility] 07-24-2023 Functional Status N/A [facility] 10-06-2022 Functional Status N/A [facility] 01-01-2022 Functional Status N/A [facility] Hospital Discharge instructions 04-04-2024 Note Date & Type Note Facility 04-04-2024 Hospital Discharg e instructions Patient Education 04/04/2024 18:07:46 Kidney Stones Kidney Stones Kidney stones are solid, rock-like deposits that form inside of the kidneys. The kidneys are a pair of organs that make urine. A kidney stone may form in a kidney and move into other parts of the urinary tract, including the tubes that connect the kidneys to the bladder (ureters), the bladder, and the tube that carries urine out of the body (urethra). As the stone moves through these areas, it can cause intense pain and block the flow of urine. Kidney stones are created when high levels of certain minerals are found in the urine. The stones are usually passed out of the body through urination, but in some cases, medical treatment may be needed to remove them. What are the causes? Kidney stones may be caused by: A condition in which certain glands produce too much parathyroid hormone (primary hyperparathyroidism), which causes too much calcium buildup in the blood. A buildup of uric acid crystals in the bladder (hyperuricosuria). Uric acid is a chemical that the body produces when you eat certain foods. It usually leaves the body in the urine. Narrowing (stricture) of one or both of the ureters. A kidney blockage that is present at (congenital obstruction). Past surgery on the kidney or the ureters. What increases the risk? The following factors may make you more likely to develop this condition: Having had a kidney stone in the past. Having a family history of kidney stones. Not drinking enough water. Eating a diet that is high in protein, salt (sodium), or sugar. Being overweight or obese. What are the signs or symptoms? Symptoms of a kidney stone may include: Pain in the side of the abdomen, right below the ribs (flank pain). Pain usually spreads (radiates) to the groin. Needing to urinate often or urgently. Painful urination. Blood in the urine (hematuria). Nausea. Vomiting. Fever and chills. How is this diagnosed? This condition may be diagnosed based on: Your symptoms and medical history. A physical exam. Blood tests. Urine tests. These may be done before and after the stone passes out of your body through urination. Imaging tests, such as a CT scan, abdominal X-ray, or ultrasound. A procedure to examine the inside of the bladder (cystoscopy). How is this treated? Treatment for kidney stones depends on the size, location, and makeup of the stones. Kidney stones will often pass out of the body through urination. You may need to: Increase your fluid intake to help pass the stone. In some cases, you may be given fluids through an IV and may need to be monitored in the hospital. Take medicine for pain. Make changes in your diet to help prevent kidney stones from coming back. Sometimes, procedures are needed to remove a kidney stone. This may involve: A procedure to break up kidney stones using: ?A focused beam of light (laser therapy). ?Shock waves (extracorporeal shock wave lithotripsy). Surgery to remove kidney stones. This may be needed if you have severe pain or have stones that block your urinary tract. Follow these instructions at home: Medicines Take ysvh-jet-sgdvtzz and prescription medicines only as told by your health care provider. Ask your health care provider if the medicine prescribed to you requires you to avoid driving or using heavy machinery. Eating and drinking Drink enough fluid to keep your urine pale yellow. You may be instructed to drink at least 8 10 glasses of water each day. This will help you pass the kidney stone. If directed, change your diet. This may include: ?Limiting how much sodium you eat. ?Eating more fruits and vegetables. ?Limiting how much animal protein you eat. Animal proteins include red meat, poultry, fish, and eggs. ?Eating a normal amount of calcium (1,000 1,300 mg per day). Follow instructions from your health care provider about eating or drinking restrictions. General instructions Collect urine samples as told by your health care provider. You may need to collect a urine sample: ?24 hours after you pass the stone. ?8 12 weeks after you pass the kidney stone, and every 6 12 months after that. Strain your urine every time you urinate, for as long as directed. Use the strainer that your health care provider recommends. Do not throw out the kidney stone after passing it. Keep the stone so it can be tested by your health care provider. Testing the makeup of your kidney stone may help prevent you from getting kidney stones in the future. Keep all follow-up visits. You may need follow-up X-rays or ultrasounds to make sure that your stone has passed. How is this prevented? To prevent another kidney stone: Drink enough fluid to keep your urine pale yellow. This is the best way to prevent kidney stones. Eat a healthy diet. Follow recommendations from your health care provider about foods to avoid. Recommendations vary depending on the type of kidney stone that you have. You may be instructed to eat a low-protein diet. Maintain a healthy weight. Where to find more information National Kidney Foundation (NKF): www.kidney.org U[employer] (UCF): www.urologyhealth.org Contact a health care provider if: You have pain that gets worse or does not get better with medicine. Get help right away if: You have a fever or chills. You develop severe pain. You develop new abdominal pain. You faint. You are unable to urinate. Summary Kidney stones are solid, rock-like deposits that form inside of the kidneys. Kidney stones can cause nausea, vomiting, blood in the urine, abdominal pain, and the urge to urinate often. Treatment for kidney stones depends on the size, location, and makeup of the stones. Kidney stones will often pass out of the body through urination. Kidney stones can be prevented by drinking enough fluids, eating a healthy diet, and maintaining a healthy weight. This information is not intended to replace advice given to you by your health care provider. Make sure you discuss any questions you have with your health care provider. Document Revised: 10/05/2022 Document Reviewed: 10/05/2022 [facility] Patient Education 2023 [employer] Follow Up Care 04/04/2024 14:36:19 With:Shazia Barry Address: [facility] Elijah Astudillo[address] [address]- [phone] Business (1) When:04/07/2024 17:36:20 [facility] Clinical Note 04-04-2024 Note Date & Type Note Facility 04-04-2024 Note ED Patient Education Note Urology Kidney Stones Kidney stones are solid, rock-like deposits that form inside of the kidneys. The kidneys are a pair of organs that make urine. A kidney stone may form in a kidney and move into other parts of the urinary tract, including the tubes that connect the kidneys to the bladder (ureters), the bladder, and the tube that carries urine out of the body (urethra). As the stone moves through these areas, it can cause intense pain and block the flow of urine. Kidney stones are created when high levels of certain minerals are found in the urine. The stones are usually passed out of the body through urination, but in some cases, medical treatment may be needed to remove them. What are the causes? Kidney stones may be caused by: ? A condition in which certain glands produce too much parathyroid hormone (primary hyperparathyroidism), which causes too much calcium buildup in the blood. ? A buildup of uric acid crystals in the bladder (hyperuricosuria). Uric acid is a chemical that the body produces when you eat certain foods. It usually leaves the body in the urine. ? Narrowing (stricture) of one or both of the ureters. ? A kidney blockage that is present at (congenital obstruction). ? Past surgery on the kidney or the ureters. What increases the risk? The following factors may make you more likely to develop this condition: ? Having had a kidney stone in the past. ? Having a family history of kidney stones. ? Not drinking enough water. ? Eating a diet that is high in protein, salt (sodium), or sugar. ? Being overweight or obese. What are the signs or symptoms? Symptoms of a kidney stone may include: ? Pain in the side of the abdomen, right below the ribs (flank pain). Pain usually spreads (radiates) to the groin. ? Needing to urinate often or urgently. ? Painful urination. ? Blood in the urine (hematuria). ? Nausea. ? Vomiting. ? Fever and chills. How is this diagnosed? This condition may be diagnosed based on: ? Your symptoms and medical history. ? A physical exam. ? Blood tests. ? Urine tests. These may be done before and after the stone passes out of your body through urination. ? Imaging tests, such as a CT scan, abdominal X-ray, or ultrasound. ? A procedure to examine the inside of the bladder (cystoscopy). How is this treated? Treatment for kidney stones depends on the size, location, and makeup of the stones. Kidney stones will often pass out of the body through urination. You may need to: ? Increase your fluid intake to help pass the stone. In some cases, you may be given fluids through an IV and may need to be monitored in the hospital. ? Take medicine for pain. ? Make changes in your diet to help prevent kidney stones from coming back. Sometimes, procedures are needed to remove a kidney stone. This may involve: ? A procedure to break up kidney stones using: ? A focused beam of light (laser therapy). ? Shock waves (extracorporeal shock wave lithotripsy). ? Surgery to remove kidney stones. This may be needed if you have severe pain or have stones that block your urinary tract. Follow these instructions at home: Medicines ? Take inyu-wet-iufgkvc and prescription medicines only as told by your health care provider. ? Ask your health care provider if the medicine prescribed to you requires you to avoid driving or using heavy machinery. Eating and drinking ? Drink enough fluid to keep your urine pale yellow. You may be instructed to drink at least 8?10 glasses of water each day. This will help you pass the kidney stone. ? If directed, change your diet. This may include: ? Limiting how much sodium you eat. ? Eating more fruits and vegetables. ? Limiting how much animal protein you eat. Animal proteins include red meat, poultry, fish, and eggs. ? Eating a normal amount of calcium (1,000?1,300 mg per day). ? Follow instructions from your health care provider about eating or drinking restrictions. General instructions ? Collect urine samples as told by your health care provider. You may need to collect a urine sample: ? 24 hours after you pass the stone. ? 8?12 weeks after you pass the kidney stone, and every 6?12 months after that. ? Strain your urine every time you urinate, for as long as directed. Use the strainer that your health care provider recommends. ? Do not throw out the kidney stone after passing it. Keep the stone so it can be tested by your health care provider. Testing the makeup of your kidney stone may help prevent you from getting kidney stones in the future. ? Keep all follow-up visits. You may need follow-up X-rays or ultrasounds to make sure that your stone has passed. How is this prevented? To prevent another kidney stone: ? Drink enough fluid to keep your urine pale yellow. This is the best way to prevent kidney stones. ? Eat a healthy diet. (more content not included)... [facility] Evaluation + Plan note 04-04-2024 Note Date & Type Note Facility 04-04-2024 Evaluation + Plan note Extrac jeremy from: Title:ED Note Author:Jace Lai PA-C te:04/04/24 Kidney stone (N20.0: Calculu s of kidney) Ordered: acetaminophen-oxycodone, 1 tab(s), Oral, q6hr as needed for pain for 3 day(s), 15 tab(s), Refill(s) 0, [facility] #[id number], 174, cm, 04/04/24 14:40:00 EDT, Height/Length Dosing, 96.3, kg, 04/04/24 14:40:00 EDT, Weight Dosing Orders: ketorolac, 30 mg = 1 mL, Injection, IV Push, Once, Stop date 04/04/24 16:28:00 EDT, STAT, Start date 04/04/24 16:28:00 EDT, 04/04/24 16:28:00 EDT morphine, 4 mg = 1 mL, Injection, IV Push, Once, Stop date 04/04/24 16:28:00 EDT, STAT, Start date 04/04/24 16:28:00 EDT, 04/04/24 16:28:00 EDT naproxen, 500 mg = 1 tab(s), Oral, BID, PRN for pain, # 20 tab(s), Refills(s) 0, Pharmacy: [facility] #[id number], 174, cm, 04/04/24 14:40:00 EDT, Height/Length Dosing, 96.3, kg, 04/04/24 14:40:00 EDT, Weight Dosing ondansetron, 4 mg = 2 mL, Injection, IV Push, Once, Stop date 04/04/24 16:28:00 EDT, STAT, Start date 04/04/24 16:28:00 EDT, 04/04/24 16:28:00 EDT ondansetron, 4 mg = 1 tab(s), Oral, TID, # 15 tab(s), Refills(s) 0, Pharmacy: [facility] #[id number], 174, cm, 04/04/24 14:40:00 EDT, Height/Length Dosing, 96.3, kg, 04/04/24 14:40:00 EDT, Weight Dosing tamsulosin, 0.4 mg = 1 cap(s), Oral, Daily, # 10 cap(s), Refills(s) 0, Pharmacy: [facility] #[id number], 174, cm, 04/04/24 14:40:00 EDT, Height/Length Dosing, 96.3, kg, 04/04/24 14:40:00 EDT, Weight Dosing CT Abdomen/Pelvis w/o Contrast Urine Strainer to go [facility] Hospital Discharge instructions 07-24-2023 Note Date & Type Note Facility 07-24-2023 Hospital Discharg e instructions Patient Education 07/24/2023 10:01:31 Upper Respiratory Infection, Adult Upper Respiratory Infection, Adult An upper respiratory infection (URI) is a common viral infection of the nose, throat, and upper air passages that lead to the lungs. The most common type of URI is the common cold. URIs usually get better on their own, without medical treatment. What are the causes? A URI is caused by a virus. You may catch a virus by: Breathing in droplets from an infected person's cough or sneeze. Touching something that has been exposed to the virus (is contaminated) and then touching your mouth, nose, or eyes. What increases the risk? You are more likely to get a URI if: You are very young or very old. You have close contact with others, such as at work, school, or a health care facility. You smoke. You have long-term (chronic) heart or lung disease. You have a weakened disease-fighting system (immune system). You have nasal allergies or asthma. You are experiencing a lot of stress. You have poor nutrition. What are the signs or symptoms? A URI usually involves some of the following symptoms: Runny or stuffy (congested) nose. Cough. Sneezing. Sore throat. Headache. Fatigue. Fever. Loss of appetite. Pain in your forehead, behind your eyes, and over your cheekbones (sinus pain). Muscle aches. Redness or irritation of the eyes. Pressure in the ears or face. How is this diagnosed? This condition may be diagnosed based on your medical history and symptoms, and a physical exam. Your health care provider may use a swab to take a mucus sample from your nose (nasal swab). This sample can be tested to determine what virus is causing the illness. How is this treated? URIs usually get better on their own within 7 10 days. Medicines cannot cure URIs, but your health care provider may recommend certain medicines to help relieve symptoms, such as: Ywcq-rvy-dfrzsjx cold medicines. Cough suppressants. Coughing is a type of defense against infection that helps to clear the respiratory system, so take these medicines only as recommended by your health care provider. Fever-reducing medicines. Follow these instructions at home: Activity Rest as needed. If you have a fever, stay home from work or school until your fever is gone or until your health care provider says your URI cannot spread to other people (is no longer contagious). Your health care provider may have you wear a face mask to prevent your infection from spreading. Relieving symptoms Gargle with a mixture of salt and water 3 4 times a day or as needed. To make salt water, completely dissolve 1 tsp (3 6 g) of salt in 1 cup (237 mL) of warm water. Use a cool-mist humidifier to add moisture to the air. This can help you breathe more easily. Eating and drinking Drink enough fluid to keep your urine pale yellow. Eat soups and other clear broths. General instructions Take onhe-kct-zdxabui and prescription medicines only as told by your health care provider. These include cold medicines, fever reducers, and cough suppressants. Do not use any products that contain nicotine or tobacco. These products include cigarettes, chewing tobacco, and vaping devices, such as e-cigarettes. If you need help quitting, ask your health care provider. Stay away from secondhand smoke. Stay up to date on all immunizations, including the yearly (annual) flu vaccine. Keep all follow-up visits. This is important. How to prevent the spread of infection to others URIs can be contagious. To prevent the infection from spreading: Wash your hands with soap and water for at least 20 seconds. If soap and water are not available, use hand it service manager. Avoid touching your mouth, face, eyes, or nose. Cough or sneeze into a tissue or your sleeve or elbow instead of into your hand or into the air. Contact a health care provider if: You are getting worse instead of better. You have a fever or chills. Your mucus is brown or red. You have yellow or brown discharge coming from your nose. You have pain in your face, especially when you bend forward. You have swollen neck glands. You have pain while swallowing. You have white areas in the back of your throat. Get help right away if: You have shortness of breath that gets worse. You have severe or persistent: ?Headache. ?Ear pain. ?Sinus pain. ?Chest pain. You have chronic lung disease along with any of the following: ?Making high-pitched whistling sounds when you breathe, most often when you breathe out (wheezing). ?Prolonged cough (more than 14 days). ?Coughing up blood. ?A change in your usual mucus. You have a stiff neck. You have changes in your: ?Vision. ?Hearing. ?Thinking. ?Mood. These symptoms may be an emergency. Get help right away. Call 911. Do not wait to see if the symptoms will go away. Do not drive yourself to the hospital. Summary An upper respiratory infection (URI) is a common infection of the nose, throat, and upper air passages that lead to the lungs. A URI is caused by a virus. URIs usually get better on their own within 7 10 days. Medicines cannot cure URIs, but your health care provider may recommend certain medicines to help relieve symptoms. This information is not intended to replace advice given to you by your health care provider. Make sure you discuss any questions you have with your health care provider. Document Revised: 01/26/2022 Document Reviewed: 01/26/2022 [facility] Patient Education 2022 [employer] 07/24/2023 09:45:34 BMI for Adults BMI for Adults What is BMI? Body mass index (BMI) is a number that is calculated from a person's weight and height. BMI can help estimate how much of a person's weight is composed of fat. BMI does not measure body fat directly. Rather, it is an alternative to procedures that directly measure body fat, which can be difficult and expensive. BMI can help identify people who may be at higher risk for certain medical problems. What are BMI measurements used for? BMI is used as a screening tool to identify possible weight problems. It helps determine whether a person is obese, overweight, a healthy weight, or underweight. BMI is useful for: Identifying a weight problem that may be related to a medical condition or may increase the risk for medical problems. Promoting changes, such as changes in diet and exercise, to help reach a healthy weight. BMI screening can be repeated to see if these changes are working. How is BMI calculated? BMI involves measuring your weight in relation to your height. Both height and weight are measured, and the BMI is calculated from those numbers. This can be done either in [place] or metric measurements. Note that charts and online BMI calculators are available to help you find your BMI quickly and easily without having to do these calculations yourself. To calculate your BMI in [place] measurements: 1.Measure your weight in pounds (lb). 2.Multiply the number of pounds by 703. For example, for a person who weighs 180 lb, multiply that number by 703, which equals 126,540. 3.Measure your height in inches. Then multiply that number by itself to get a measurement called inches squared. For example, for a person who is 70 inches tall, the inches squared measurement is 70 inches x 70 inches, which equals 4,900 inches squared. 4.Divide the total from step 2 (number of lb x 703) by the total from step 3 (inches squared): 126,540 4,900 = 25.8. This is your BMI. To calculate your BMI in metric measurements: 1.Measure your weight in kilograms (kg). 2.Measure your height in meters (m). Then multiply that number by itself to get a measurement called meters squared. For example, for a person who is 1.75 m tall, the meters squared measurement is 1.75 m x 1.75 m, which is equal to 3.1 meters squared. 3.Divide the number of kilograms (your weight) by the meters squared number. In this example: 70 3.1 = 22.6. This is your BMI. What do the results mean? BMI charts are used to identify whether you are underweight, normal weight, overweight, or obese. The following guidelines will be used: Underweight: BMI less than 18.5. Normal weight: BMI between 18.5 and 24.9. Overweight: BMI between 25 and 29.9. Obese: BMI of 30 or above. Keep these notes in mind: Weight includes both fat and muscle, so someone with a muscular build, such as an athlete, may have a BMI that is higher than 24.9. In cases like these, BMI is not an accurate measure of body fat. To determine if excess body fat is the cause of a BMI of 25 or higher, further assessments may need to be done by a health care provider. BMI is usually interpreted in the same way for men and women. Where to find more information For more information about BMI, including tools to quickly calculate your BMI, go to these websites: Centers for Disease Control and Prevention: www.cdc.gov [place] [employer]: www.heart.org National Heart, Lung, and Blood Chloe: www.nhlbi.nih.gov Summary Body mass index (BMI) is a number that is calculated from a person's weight and height. BMI may help estimate how much of a person's weight is composed of fat. BMI can help identify those who may be at higher risk for certain medical problems. BMI can be measured using [place] measurements or metric measurements. BMI charts are used to identify whether you are underweight, normal weight, overweight, or obese. This information is not intended to replace advice given to you by your health care provider. Make sure you discuss any questions you have with your health care provider. Document Revised: 03/18/2020 Document Reviewed: 01/24/2020 [facility] Patient Education 2022 [employer] Follow Up Care 07/24/2023 09:19:56 With:SHAHEED CARRENO DO Address: [address] [place] [phone] When: Unknown [facility] Hospital Discharge instructions 10-06-2022 Note Date & Type Note Facility 10-06-2022 Hospital Discharg e instructions Patient Education 10/06/2022 15:39:21 Health Maintenance, Male Health Maintenance, Male Adopting a healthy lifestyle and getting preventive care are important in promoting health and wellness. Ask your health care provider about: The right schedule for you to have regular tests and exams. Things you can do on your own to prevent diseases and keep yourself healthy. What should I know about diet, weight, and exercise? Eat a healthy diet Eat a diet that includes plenty of vegetables, fruits, low-fat dairy products, and lean protein. Do not eat a lot of foods that are high in solid fats, added sugars, or sodium. Maintain a healthy weight Body mass index (BMI) is a measurement that can be used to identify possible weight problems. It estimates body fat based on height and weight. Your health care provider can help determine your BMI and help you achieve or maintain a healthy weight. Get regular exercise Get regular exercise. This is one of the most important things you can do for your health. Most adults should: Exercise for at least 150 minutes each week. The exercise should increase your heart rate and make you sweat (moderate-intensity exercise). Do strengthening exercises at least twice a week. This is in addition to the moderate-intensity exercise. Spend less time sitting. Even light physical activity can be beneficial. Watch cholesterol and blood lipids Have your blood tested for lipids and cholesterol at 20 years of age, then have this test every 5 years. You may need to have your cholesterol levels checked more often if: Your lipid or cholesterol levels are high. You are older than 40 years of age. You are at high risk for heart disease. What should I know about cancer screening? Many types of cancers can be detected early and may often be prevented. Depending on your health history and family history, you may need to have cancer screening at various ages. This may include screening for: Colorectal cancer. Prostate cancer. Skin cancer. Lung cancer. What should I know about heart disease, diabetes, and high blood pressure? Blood pressure and heart disease High blood pressure causes heart disease and increases the risk of stroke. This is more likely to develop in people who have high blood pressure readings, are of descent, or are overweight. Talk with your health care provider about your target blood pressure readings. Have your blood pressure checked: ?Every 3 5 years if you are 18 39 years of age. ?Every year if you are 40 years old or older. If you are between the ages of 65 and 75 and are a current or former smoker, ask your health care provider if you should have a one-time screening for abdominal aortic aneurysm (AAA). Diabetes Have regular diabetes screenings. This checks your fasting blood sugar level. Have the screening done: Once every three years after age 45 if you are at a normal weight and have a low risk for diabetes. More often and at a younger age if you are overweight or have a high risk for diabetes. What should I know about preventing infection? Hepatitis B If you have a higher risk for hepatitis B, you should be screened for this virus. Talk with your health care provider to find out if you are at risk for hepatitis B infection. Hepatitis C Blood testing is recommended for: Everyone born from 1945 through 1965. Anyone with known risk factors for hepatitis C. Sexually transmitted infections (STIs) You should be screened each year for STIs, including gonorrhea and chlamydia, if: ?You are sexually active and are younger than 24 years of age. ?You are older than 24 years of age and your health care provider tells you that you are at risk for this type of infection. ?Your sexual activity has changed since you were last screened, and you are at increased risk for chlamydia or gonorrhea. Ask your health care provider if you are at risk. Ask your health care provider about whether you are at high risk for HIV. Your health care provider may recommend a prescription medicine to help prevent HIV infection. If you choose to take medicine to prevent HIV, you should first get tested for HIV. You should then be tested every 3 months for as long as you are taking the medicine. Follow these instructions at home: Lifestyle Do not use any products that contain nicotine or tobacco, such as cigarettes, e-cigarettes, and chewing tobacco. If you need help quitting, ask your health care provider. Do not use street drugs. Do not share needles. Ask your health care provider for help if you need support or information about quitting drugs. Alcohol use Do not drink alcohol if your health care provider tells you not to drink. If you drink alcohol: ?Limit how much you have to 0 2 drinks a day. ?Be aware of how much alcohol is in your drink. In the [place] one drink equals one 12 oz bottle of beer (355 mL), one 5 oz glass of wine (148 mL), or one 1 oz glass of hard liquor (44 mL). General instructions Schedule regular health, dental, and eye exams. Stay current with your vaccines. Tell your health care provider if: ?You often feel depressed. ?You have ever been abused or do not feel safe at home. Summary Adopting a healthy lifestyle and getting preventive care are important in promoting health and wellness. Follow your health care provider's instructions about healthy diet, exercising, and getting tested or screened for diseases. Follow your health care provider's instructions on monitoring your cholesterol and blood pressure. This information is not intended to replace advice given to you by your health care provider. Make sure you discuss any questions you have with your health care provider. Document Released: 12/22/2008 Document Revised: 06/19/2019 Document Reviewed: 06/19/2019 [facility] Patient Education 2019 [employer] Follow Up Care 09/22/2022 18:55:37 With:KEN GIRALDO CNP Address: [address] [place] [address] When:1 year [facility] Evaluation + Plan note 10-06-2022 Laboratory Note Date & Type Note Facility 10-06-2022 Evaluation + Plan note Future Scheduled TestsPSA Screen, Total 10/06/22Basic Metabolic Panel 10/06/22CBC w/ Auto Diff 10/06/22Lipid Panel 10/06/22 [facility] Hospital Discharge instructions 01-01-2022 Note Date & Type Note Facility 01-01-2022 Hospital Discharg e instructions Patient Education 01/01/2022 20:31:58 Kidney Stones Kidney Stones Kidney stones are solid, rock-like deposits that form inside of the kidneys. The kidneys are a pair of organs that make urine. A kidney stone may form in a kidney and move into other parts of the urinary tract, including the tubes that connect the kidneys to the bladder (ureters), the bladder, and the tube that carries urine out of the body (urethra). As the stone moves through these areas, it can cause intense pain and block the flow of urine. Kidney stones are created when high levels of certain minerals are found in the urine. The stones are usually passed out of the body through urination, but in some cases, medical treatment may be needed to remove them. What are the causes? Kidney stones may be caused by: A condition in which certain glands produce too much parathyroid hormone (primary hyperparathyroidism), which causes too much calcium buildup in the blood. A buildup of uric acid crystals in the bladder (hyperuricosuria). Uric acid is a chemical that the body produces when you eat certain foods. It usually exits the body in the urine. Narrowing (stricture) of one or both of the ureters. A kidney blockage that is present at (congenital obstruction). Past surgery on the kidney or the ureters, such as gastric bypass surgery. What increases the risk? The following factors may make you more likely to develop this condition: Having had a kidney stone in the past. Having a family history of kidney stones. Not drinking enough water. Eating a diet that is high in protein, salt (sodium), or sugar. Being overweight or obese. What are the signs or symptoms? Symptoms of a kidney stone may include: Pain in the side of the abdomen, right below the ribs (flank pain). Pain usually spreads (radiates) to the groin. Needing to urinate frequently or urgently. Painful urination. Blood in the urine (hematuria). Nausea. Vomiting. Fever and chills. How is this diagnosed? This condition may be diagnosed based on: Your symptoms and medical history. A physical exam. Blood tests. Urine tests. These may be done before and after the stone passes out of your body through urination. Imaging tests, such as a CT scan, abdominal X-ray, or ultrasound. A procedure to examine the inside of the bladder (cystoscopy). How is this treated? Treatment for kidney stones depends on the size, location, and makeup of the stones. Kidney stones will often pass out of the body through urination. You may need to: Increase your fluid intake to help pass the stone. In some cases, you may be given fluids through an IV and may need to be monitored at the hospital. Take medicine for pain. Make changes in your diet to help prevent kidney stones from coming back. Sometimes, medical procedures are needed to remove a kidney stone. This may involve: A procedure to break up kidney stones using: ?A focused beam of light (laser therapy). ?Shock waves (extracorporeal shock wave lithotripsy). Surgery to remove kidney stones. This may be needed if you have severe pain or have stones that block your urinary tract. Follow these instructions at home: Medicines Take uhjn-cxr-yqypizx and prescription medicines only as told by your health care provider. Ask your health care provider if the medicine prescribed to you requires you to avoid driving or using heavy machinery. Eating and drinking Drink enough fluid to keep your urine pale yellow. You may be instructed to drink at least 8 10 glasses of water each day. This will help you pass the kidney stone. If directed, change your diet. This may include: ?Limiting how much sodium you eat. ?Eating more fruits and vegetables. ?Limiting how much animal protein such as red meat, poultry, fish, and eggs you eat. Follow instructions from your health care provider about eating or drinking restrictions. General instructions Collect urine samples as told by your health care provider. You may need to collect a urine sample: ?24 hours after you pass the stone. ?8 12 weeks after passing the kidney stone, and every 6 12 months after that. Strain your urine every time you urinate, for as long as directed. Use the strainer that your health care provider recommends. Do not throw out the kidney stone after passing it. Keep the stone so it can be tested by your health care provider. Testing the makeup of your kidney stone may help prevent you from getting kidney stones in the future. Keep all follow-up visits as told by your health care provider. This is important. You may need follow-up X-rays or ultrasounds to make sure that your stone has passed. How is this prevented? To prevent another kidney stone: Drink enough fluid to keep your urine pale yellow. This is the best way to prevent kidney stones. Eat a healthy diet and follow recommendations from your health care provider about foods to avoid. You may be instructed to eat a low-protein diet. Recommendations vary depending on the type of kidney stone that you have. Maintain a healthy weight. Where to find more information National Kidney Foundation (NKF): www.kidney.org [facility] (UCF): www.urologyhealth.org Contact a health care provider if: You have pain that gets worse or does not get better with medicine. Get help right away if: You have a fever or chills. You develop severe pain. You develop new abdominal pain. You faint. You are unable to urinate. Summary Kidney stones are solid, rock-like deposits that form inside of the kidneys. Kidney stones can cause nausea, vomiting, blood in the urine, abdominal pain, and the urge to urinate frequently. Treatment for kidney stones depends on the size, location, and makeup of the stones. Kidney stones will often pass out of the body through urination. Kidney stones can be prevented by drinking enough fluids, eating a healthy diet, and maintaining a healthy weight. This information is not intended to replace advice given to you by your health care provider. Make sure you discuss any questions you have with your health care provider. Document Released: 06/26/2006 Document Revised: 11/12/2019 Document Reviewed: 11/12/2019 [facility] Patient Education 2020 [employer] Follow Up Care 01/01/2022 18:02:50 With:Erasmo TOBIN Address: [address] [phone]- Business (1) When:01/04/2022 19:53:51 [facility] Evaluation + Plan note Note Date & Type Note Facility Evaluation + Plan note No data available for this section [facility] Evaluation note Note Date & Type Note Facility Evaluation note Diagnosis Onset Date Obesity acute Screening for colon cancer a cute Screening PSA (prostate specific antigen) acute Wellness examination noneact almita [facility] Work Phone: Progress note Note Date & Type Note Facility Progress note No data available for this section [facility] Summary Purpose Family History No Family History Records FoundNo Family History Records Found No data available for this section No data available for this section No Family History Records FoundNo Family History Records FoundNo Family History Records FoundNo Family History Records FoundNo Family History Records FoundNo Family History Records FoundNo Family History Records Found Advance Directives No Advanced Directives Records Found Advance Directive Response Recorded Date/ Time Advance Directives No November 08, 2023 10:34am Chief Complaint and Reason for Visit Chief Complaint check Reason for Visit Obesity Screening for colon cancer Screening PSA (prostate specific antigen) Wellness examination Additional Source Comments (unrecognized sect ion and content) No Status Records FoundNo Status Records FoundNo Status Records FoundNo Status Records FoundNo Status Records FoundNo Status Records FoundNo Status Records FoundNo Status Records FoundNo Status Records Found INFORMATION SOURCE (unrecogn ized section and content) DATE CREATED AUTHOR 12/16/2021 [facility] DATE CREATED AUTHOR AUTHOR'S ORGANIZ ATION 10/11/2022 [facility] DATE CREATED AUTHOR AUTHOR'S ORGANIZ ATION 04/06/2024 [facility] DATE CREATED AUTHOR AUTHOR'S ORGANIZ ATION 04/10/2024 [facility] Care Team (unrecognized sect ion and content) Team Status: Active Member Role Status Dates Shaheed Carreno DO Primary Care Provider Active Team Status: Inactive Member Role Status Dates Shaheed Carreno DO Primary Care Provide r, Attending Provider Active Start: November 29, 2023 End: November 29, 2023 Goals (unrecognized section and content) Goals may be documented in a n alternate section FOR RECORDS PERTAINING TO PATIENTS WHO ARE OR HAVE BEEN ENROLLED IN A CHEMICAL DEPENDENCY/SUBSTANCEABUSE PROGRAM, SOME INFORMATION MAY BE OMITTED. This clinical summary was aggregated from multiple sources. Caution should be exercised in using it in the provision of clinical care. This summary normalizes information from multiple sources, and as a consequence, information in this document may materially change the coding, format and clinical context of patient data. In addition, data may be omitted in some cases. CLINICAL DECISIONS SHOULD BE BASED ON THE PRIMARY CLINICAL RECORDS. [facility] [facility] provides no warranty or guarantee of the accuracy or completeness of information in this document.
[2025-03-28 09:35] LABS: Alanine Aminotransferase 48 U/L (16-63); Albumin Globulin Ratio 1.2; Albumin Level 4.2 g/dL (3.4-5.0); Alkaline Phosphatase 78 U/L (46-116); Anion Gap 15.1; Aspartate Amino Transferase 23 U/L (15-37); Blood Urea Nitrogen 21.0 mg/dL (7.0-18.0); Calcium 9.3 mg/dL (8.5-10.1); Carbon Dioxide 26.6 mmol/L (21.0-32.0); Chloride 103 mmol/L (98-107); Cholesterol 220 mg/dL (<=200); Estimated GFR (African America >60 (>=60 mL/min/1.73m^2); Estimated GFR (Non-African Ame 57 (>=60 mL/min/1.73m^2); Globulin 3.4 g/dL; Glucose 100 mg/dL (74-106); HDL Cholesterol 59 mg/dL (40-60); Potassium 4.7 mmol/L (3.5-5.1); Sodium 140 mmol/L (136-145); Total Protein 7.6 g/dL (6.4-8.2); Triglycerides 104 mg/dL (<=150); VLDL CHOLESTEROL 20.8 mg/dL
[2025-03-28 09:53] LABS: Hematocrit 47.6 % (42.0-54.0); Hemoglobin 16.2 g/dL (14.0-18.0); Immature Granulocytes Abs Auto 0.03 10^3/uL (0.00-0.03); Immature Granulocytes Pct Auto 0.6 % (0.0-0.5); Lymphocytes Absolute Auto 1.1 10^3/uL (1.2-3.8); Mean Corpuscular HGB Conc 34.0 g/dL (29.9-35.2); Mean Corpuscular Hemoglobin 29.2 pg (25.9-34.0); Mean Corpuscular Volume 85.8 fL (80.0-94.0); Platelet Count 277 10^3/uL (150-450); Red Blood Count 5.55 10^6/uL (4.70-6.10); White Blood Count 4.8 10^3/uL (4.0-11.0)
== END 2025-03-28 08:51 | disposition home or self-care (01) ==
LOC: LAB 08:51
PROVIDERS: PCP Internal Medicine; Visit Provider Internal Medicine
DX: Z00.00 Encounter for general adult medical examination without abnormal findings (principal); Z12.5 Encounter for screening for malignant neoplasm of prostate
CPT/HCPCS: 36415; 80053; 80061; 85025; G0103